=== PATIENT | female | born 1945 | race Caucasian/White ===

== ENCOUNTER 2017-02-22 20:08 | Inpatient (IN) | payer MEDICARE ==
[2017-02-22] MEDS ORDERED: NS 0.9% 1000 ML* 2,000 ML IV ONE (20:34)
[2017-02-22] MEDS ORDERED: Cefepime(*) 2 GM in NS 0.9% 50 ML* 50 ML IVPB ONE (20:38)
[2017-02-22 20:53] LABS: Hematocrit 40 % (35-47); Hemoglobin 13.4 g/dl (12.0-16.0); Mean Corpuscular HGB Conc 34 g/dl (31-36); Mean Corpuscular Hemoglobin 35 pg (27-31); Mean Corpuscular Volume 103 fL (80-97); Mean Platelet Volume 8 um3 (7.4-10.4); Red Cell Distribution Width 16 % (10.5-15)
[2017-02-22] MEDS ORDERED: NS 0.9% 50 ML* 50 ML ONE (21:01)
[2017-02-22 21:09] LABS: ALT 15 U/L (7-52); AST 17 U/L (13-39); Albumin 3.3 g/dL (3.2-5.2); Alkaline Phosphatase 59 U/L (34-104); Anion Gap 3 mmol/L (2-11); BUN/Creatinine Ratio 9.4 (8-20); Blood Urea Nitrogen 10 mg/dL (6-24); C Reactive Protein 4.08 mg/L (< 5.00); CO2 Carbon Dioxide 28 mmol/L (22-32); Calcium 8.3 mg/dL (8.6-10.3); Chloride 106 mmol/L (101-111); Creatine Kinase 98 U/L (10-223); EGFR African American 65.4 (>60); EGFR Non-African American 50.8 (>60); Globulin 2.6 g/dL (2-4); Glucose 97 mg/dL (70-100); Lipase < 10 U/L (11.0-82.0); Magnesium 1.8 mg/dL (1.9-2.7); Sodium 137 mmol/L (133-145); Total Protein 5.9 g/dL (6.4-8.9)
[2017-02-22 21:10] LABS: Troponin I 0.01 ng/mL (<0.04)
[2017-02-22 21:42] LABS: Urine Bilirubin Negative (Negative); Urine Glucose Negative (Negative); Urine Nitrite Negative (Negative)
--- NOTE | 2017-02-22 21:48 | RAD ---
Indication: Shortness of breath. Single frontal view of the chest performed at 2043 hours was reviewed. No prior study is available for comparison. No mediastinal shift is noted. Heart is of normal size and configuration. Early infiltrate in the right base is not excluded. Central line is in place. IMPRESSION: THERE MAY BE EARLY INFILTRATE IN THE RIGHT BASE..
[2017-02-22] MEDS ORDERED: Ondansetron INJ* 2 MG/ML VIAL IV PRN (22:02)
[2017-02-22] MEDS ORDERED: Albuterol 2.5 MG/3 ML NEB.SOL* (0.083%) INH PRN (22:02)
[2017-02-22] MEDS ORDERED: Magnesium Sulfate 2 GM IV* 2 GM/50 ML BAG IVPB ONE (22:05)
[2017-02-22] MEDS ORDERED: Albuterol/Ipratropium NEB.SOL* Albuterol 2.5 MG/Ipratropium 0.5 MG 3 ML INH SCH (23:00)
[2017-02-23] MEDS: Nicotine PATCH 21 MG/24 HR* PATCH TRANSDERM SCH ×2 (00:17→08:50)
[2017-02-23] MEDS: predniSONE TAB* 20 MG PO SCH ×2 (00:18→08:49)
[2017-02-23] MEDS: Oseltamivir CAP* 30 MG CAP PO SCH ×3 (00:19→20:59)
[2017-02-23] MEDS: cefTRIAXone VIAL(*) 1,000 MG in NS 0.9% 50 ML* 50 ML IVPB SCH (01:24)
[2017-02-23] MEDS: Azithromycin IV(*) 500 MG in NS 0.9% 250 ML* 250 ML IVPB SCH (02:05)
--- NOTE | 2017-02-23 02:13 | HP ---
CC: Dr. Dickinson, [facility] * HISTORY AND PHYSICAL: DATE OF ADMISSION: 02/22/17 PRIMARY CARE PROVIDER: Dr. Dickinson, [facility]. ATTENDING PHYSICIAN WHILE IN THE HOSPITAL: Dr. Jessica Arrington * (report dictated by Cuate Handy NP). CHIEF COMPLAINT: 1. Cough. 2. URI symptoms. 3. Fevers. HISTORY OF PRESENTING ILLNESS: Mrs. Carlson is a 71-year-old female patient who does not get any of her care here, but she recently relocated from [place], [place] to [facility]. She comes into the ER today, says over the last 5 days, she has had progressive worsening shortness of breath. Prior to this, she had episodes of runny nose, sore throat, cough, feeling congested. She has been aching all over and having fevers and just not feeling well. She has had decreased appetite and just more fatigued and more shortness of breath. She came in today because she was having some chest discomfort which was much worse when she was taking a deep breath and coughing. She described it as a pressure and heaviness and because of this, she told her who felt that she should come into the ER and be evaluated. She was evaluated here in ED. It was noted that she appeared to be hypoxic. She appeared to be short of breath. Ultimately, it was found that she had the flu and we were asked to evaluate. She also admitted having some diarrhea and recently was on a Z-Carlos from her primary. PAST MEDICAL HISTORY: Significant for: 1. Breast cancer with recurrent metastatic disease to her lungs and liver, on active chemo. 2. COPD. PAST SURGICAL HISTORY: 1. She has had a left mastectomy. 2. . HOME MEDICATIONS: Include: 1. Albuterol 1 puff inhaled every 6 hours as needed. 2. Mobic 7.5 mg p.o. b.i.d. 3. Valium 5 mg p.o. t.i.d. as needed. 4. Tapazole 5 mg p.o. daily. 5. [place] 1 tablet p.o. every 6 hours as needed. 6. Celexa 40 mg daily. ALLERGIES TO MEDICATIONS: No known drug allergies. FAMILY HISTORY: Both her parents were alcoholic. They are . SOCIAL HISTORY: She is a pack a day smoker. She has been a smoker for about 50 years. She denies any alcohol use. Surrogate decision maker is her . REVIEW OF SYSTEMS: There is no documented fever. Denied having any significant weight change. There was no double vision. She denied having any ear discharge. There was rhinorrhea. There was sore throat. There was chest discomfort per my HPI. There is dyspnea particularly on exertion. There is no orthopnea. No nocturnal dyspnea. No abdominal pain. There was some episodes of vomiting and diarrhea. No dysuria. No frequency. No seizure. No loss of consciousness. No pruritus and no skin ulcerations. Review of 14 systems completed, all others negative. PHYSICAL EXAMINATION GENERAL: At this time, Mrs. Carlson is a 71-year-old female patient. She appears to be well nourished, well developed. She is chronically ill- appearing. She is sitting in the ER stretcher. She does not appear to be in any acute distress. VITAL SIGNS: Blood pressure 112/47, pulse 81, respirations 22, O2 sat 99% on 4 L, and temperature 97.8. HEENT: Head: Atraumatic. Eyes: EOMs are intact. Sclerae anicteric and not pale. NECK: Supple. Throat: Oral mucosa appears to be dry. No oropharyngeal erythema. LUNGS: She did have wheezing noted throughout. She had equal diaphragmatic expansion. HEART: Sounds S1, S2. Regular rate and rhythm. No murmurs, rubs, or gallops. ABDOMEN: Soft. It was flat, nontender. Bowel sounds present. EXTREMITIES: Pulses 2+ throughout. She is able to move all 4 extremities with 5/5 strength. NEUROLOGIC: The patient is awake, alert, oriented x3. Tongue midline. Retail Brand Ambassador are equal. No gross focal deficits. SKIN: Grossly intact. LABORATORY DATA: WBC of 8.0, RBC of 3.90, hemoglobin of 13.4, hematocrit of 40 , platelet count of 253. The INR was 0.93, PTT of 29.4. Sodium 137, potassium of 4, chloride of 106, bicarb 28, BUN was 10, creatinine of 1.06, glucose 97, lactic 1, calcium 8.3, mag 1.8. Total bilirubin 0.3. AST 17, ALT 15, alk phos 59. CK 98, CK-MB 2.9. Troponin 0.01. BNP of 128. Lipase negative. Albumin normal. Urine negative. Serology positive for flu. She had chest x-ray obtained today which revealed, impression: Early infiltrate in the right base. Old medical records were reviewed. She had an EKG as well, which showed a normal sinus rhythm rate of 70. No ST elevations or T-wave inversions. Old medical records were reviewed. ASSESSMENT AND PLAN: Mrs. Carlson is a 71-year-old female patient with multiple medical problems, coming into the ER today with complaints of cough, chills, URI symptoms. On evaluation, found to have pneumonia with early infiltrate. She will be admitted under inpatient status for: 1. Influenza. At this point, I did put her on Tamiflu. She does appear to have a chronic obstructive pulmonary disease exacerbation related to this. I will go ahead and put her on steroids and nebs. In addition to this, there is a question of early pneumonia is developing in the right base. She was significantly wheezing. She is immunocompromised, so I did think it is appropriate to put her on antibiotics despite the white count being elevated. She may not amount this. So, I am going to put her on Rocephin and azithromycin. She has been hydrated here in the ED. We will put her on nebs and steroids and Dulera. We will continue to follow closely. 2. Breast cancer with mets. She takes chemo every Wednesday. She will follow with her primary oncologist. 3. Chest discomfort. Probably secondary to the influenza and pneumonia. We will go ahead and cycle her troponins. 4. DVT prophylaxis. She will be placed on heparin subcu. 5. Code status. Full code. 6. Fluids, electrolytes, and nutrition. She can have a regular diet. 7. Diarrhea is probably secondary to the azithromycin, but I will check a C. diff. TIME SPENT: Time spent on the admission was 60 minutes, greater than half the time was spent [id number] with the patient obtaining my history and physical, other half of the time spent going over the plan of care with the patient and implementing plan of care. I did discuss the plan of care with my attending, Dr. Arrington, she is in agreement. CUATE HANDY, RIVAS [id number]/CPS #: [id number] MARIA ESTHER
[2017-02-23] MEDS: Albuterol/Ipratropium NEB.SOL* Albuterol 2.5 MG/Ipratropium 0.5 MG 3 ML INH SCH ×6 (03:46→23:52)
--- NOTE | 2017-02-23 05:59 | ED ---
Juliet Gamino Nilda, scribed for Bran Sharif MD on 02/22/17 at 2032 . Shortness of Breath - HPI Summary HPI Summary: This patient is a 71 year old F BIBA presenting to [facility] accompanied by family member with a chief complaint of constant exacerbated SOB since 5 days ago. The patient rates the pain 0/10 in severity. Symptoms alleviated by neb treatment. Patient reports CP, cough, joint pain (hip, ankle, knee; present 1 week), diaphoresis, nausea (resolved), weakness, and fever. Patient denies abd pain. She has had a cold for a week. PMHx includes COPD, emphysema, and cancer ( currently on chemo). Patient has a port and uses 2 L Nasal Cannula at home. 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 NKDA. - History of Current Complaint Chief Complaint: EDShortnessOfBreath Time Seen by Provider: 02/22/17 20:22 Hx Obtained From: Patient Onset/Duration: Sudden Onset, Lasting Days - 5 days, Still Present Current Severity: Moderate Dyspnea At: Rest Aggrevating Factors: Other - COPD PMHx; recent cold Alleviating Factors: Other - Nebulizer Associated Signs & Symptoms: Cough (Productive), Chest Pain w/Cough, Fever, Diaphoresis - Allergy/Home Medications Allergies/Adverse Reactions: Allergies Allergy/AdvReac Type Severity Reaction Status Date / Time No Known Allergies Allergy Verified 02/22/17 21:00 Home Medications: Home Medications Albuterol HFA INHALER* [Ventolin HFA Inhaler*] 1 puff INH Q6H PRN 02/22/17 [ History Confirmed 02/22/17] Citalopram TAB* [CeleXA TAB*] 40 mg PO DAILY 02/22/17 [History Confirmed ] Diazepam TAB(*) [Valium TAB(*)] 5 mg PO TID PRN 02/22/17 [History Confirmed ] HYDROcodone/ACETAMIN 5-325 MG* [[place] 5-325 TAB*] 1 tab PO Q6H PRN 02/22/17 [ History Confirmed 02/22/17] Meloxicam(NF) [Mobic(NF)] 7.5 mg PO BID 02/22/17 [History Confirmed 02/22/17] Methimazole TAB* [Tapazole TAB*] 5 mg PO DAILY 02/22/17 [History Confirmed 02/22] PMH/Surg Hx/FS Hx/Imm Hx Respiratory History: Reports: Hx Chronic Obstructive Pulmonary Disease (COPD), Other Respiratory Problems/Disorders - Emphysema Sensory History: Denies: Hx Legally Blind - Cancer History Cancer Type, Location and Year: Patient currently on chemo but patient and family member did not provide information for which cancer she has. Infectious Disease History: No Infectious Disease History: Denies: Traveled Outside the [place] in Last 30 Days - Family History Known Family History: Positive: Hypertension Negative: Diabetes Review of Systems Positive: Fever, Skin Diaphoresis Positive: Other - Has had a cold for the past week Positive: Chest Pain Positive: Shortness Of Breath, Cough Positive: Nausea. Negative: Abdominal Pain Positive: Other - joint pain (hip, ankle, knee). Negative: Edema Positive: Weakness All Other Systems Reviewed And Are Negative: Yes Physical Exam Triage Information Reviewed: Yes Vital Signs On Initial Exam: Initial Vitals Temp Pulse Resp BP Pulse Ox 97.8 F 81 22 112/47 99 02/22/17 20:13 02/22/17 20:13 02/22/17 20:13 02/22/17 20:13 02/22/17 20:13 Vital Signs Reviewed: Yes Appearance: Positive: Well-Appearing, No Pain Distress Skin: Positive: Warm, Skin Color Reflects Adequate Perfusion, Dry Head/Face: Positive: Normal Head/Face Inspection Eyes: Positive: EOMI, VERNON ENT: Positive: Normal ENT inspection Neck: Positive: Supple, Nontender Respiratory/Lung Sounds: Positive: Other - Wheezes and Crackles bilaterally; mild respiratory distress, O2 Sat in upper 80s on NC Cardiovascular: Positive: RRR. Negative: Leg Edema Left, Leg Edema Right Abdomen Description: Positive: Nontender, Soft Bowel Sounds: Positive: Present Musculoskeletal: Positive: Normal, Strength/ROM Intact. Negative: Edema Left, Edema Right Neurological: Positive: Normal, Sensory/Motor Intact, Alert, Oriented to Person Place, Time Psychiatric: Positive: Affect/Mood Appropriate Diagnostics - Vital Signs Vital Signs Temp Pulse Resp BP Pulse Ox 02/22/17 20:13 97.8 F 81 22 112/47 99 - Laboratory Lab Results: Lab Results 02/22/17 02/22/17 02/22/17 Range/Units 20:30 20:30 20:30 WBC (3.5-10.8) 10^3/ul RBC (4.0-5.4) 10^6/ul Hgb (12.0-16.0) g/dl Hct (35-47) % MCV (80-97) fL MCH (27-31) pg MCHC (31-36) g/dl RDW (10.5-15) % Plt Count (150-450) 10^3/ul MPV (7.4-10.4) um3 Neut % (Auto) (38-83) % Lymph % (Auto) (25-47) % [place] % (Auto) (1-9) % Eos % (Auto) (0-6) % Baso % (Auto) (0-2) % Absolute Neuts (auto) (1.5-7.7) 10^3/ul Absolute Lymphs (auto) (1.0-4.8) 10^3/ul Absolute Monos (auto) (0-0.8) 10^3/ul Absolute Eos (auto) (0-0.6) 10^3/ul Absolute Basos (auto) (0-0.2) 10^3/ul Absolute Nucleated RBC 10^3/ul Nucleated RBC % INR (Anticoag Therapy) 0.93 (0.89-1.11) APTT 29.4 (26.0-36.3) seconds Sodium 137 (133-145) mmol/L Potassium 4.0 (3.5-5.0) mmol/L Chloride 106 (101-111) mmol/L Carbon Dioxide 28 (22-32) mmol/L Anion Gap 3 (2-11) mmol/L BUN 10 (6-24) mg/dL Creatinine 1.06 H (0.51-0.95) mg/dL Est GFR ( Amer) 65.4 (>60) Est GFR (Non-Af Amer) 50.8 (>60) BUN/Creatinine Ratio 9.4 (8-20) Glucose 97 (70-100) mg/dL Lactic Acid (0.5-2.0) mmol/L Calcium 8.3 L (8.6-10.3) mg/dL Magnesium 1.8 L (1.9-2.7) mg/dL Total Bilirubin 0.30 (0.2-1.0) mg/dL AST 17 (13-39) U/L ALT 15 (7-52) U/L Alkaline Phosphatase 59 (34-104) U/L Total Creatine Kinase 98 (10-223) U/L CK-MB (CK-2) 2.9 (0.6-6.3) ng/mL Troponin I 0.01 (<0.04) ng/mL C-Reactive Protein 4.08 (< 5.00) mg/L B-Natriuretic Peptide 128 H ( - 100) pg/mL Total Protein 5.9 L (6.4-8.9) g/dL Albumin 3.3 (3.2-5.2) g/dL Globulin 2.6 (2-4) g/dL Albumin/Globulin Ratio 1.3 (1-3) Lipase < 10 L (11.0-82.0) U/L Urine Color Urine Appearance Urine pH (5-9) Ur Specific Young (1.010-1.030) Urine Protein (Negative) Urine Ketones (Negative) Urine Blood (Negative) Urine Nitrate (Negative) Urine Bilirubin (Negative) Urine Urobilinogen (Negative) Ur Leukocyte Esterase (Negative) Urine Glucose (Negative) Influenza A (Rapid) (Negative) Influenza B (Rapid) (Negative) 02/22/17 02/22/17 02/22/17 Range/Units 20:30 20:30 21:16 WBC 8.0 (3.5-10.8) 10^3/ul RBC 3.90 L (4.0-5.4) 10^6/ul Hgb 13.4 (12.0-16.0) g/dl Hct 40 (35-47) % MCV 103 H (80-97) fL MCH 35 H (27-31) pg MCHC 34 (31-36) g/dl RDW 16 H (10.5-15) % Plt Count 253 (150-450) 10^3/ul MPV 8 (7.4-10.4) um3 Neut % (Auto) 54.3 (38-83) % Lymph % (Auto) 36.7 (25-47) % [place] % (Auto) 8.0 (1-9) % Eos % (Auto) 0.6 (0-6) % Baso % (Auto) 0.4 (0-2) % Absolute Neuts (auto) 4.4 (1.5-7.7) 10^3/ul Absolute Lymphs (auto) 2.9 (1.0-4.8) 10^3/ul Absolute Monos (auto) 0.6 (0-0.8) 10^3/ul Absolute Eos (auto) 0 (0-0.6) 10^3/ul Absolute Basos (auto) 0 (0-0.2) 10^3/ul Absolute Nucleated RBC 0.01 10^3/ul Nucleated RBC % 0.1 INR (Anticoag Therapy) (0.89-1.11) APTT (26.0-36.3) seconds Sodium (133-145) mmol/L Potassium (3.5-5.0) mmol/L Chloride (101-111) mmol/L Carbon Dioxide (22-32) mmol/L Anion Gap (2-11) mmol/L BUN (6-24) mg/dL Creatinine (0.51-0.95) mg/dL Est GFR ( Amer) (>60) Est GFR (Non-Af Amer) (>60) BUN/Creatinine Ratio (8-20) Glucose (70-100) mg/dL Lactic Acid 1.0 (0.5-2.0) mmol/L Calcium (8.6-10.3) mg/dL Magnesium (1.9-2.7) mg/dL Total Bilirubin (0.2-1.0) mg/dL AST (13-39) U/L ALT (7-52) U/L Alkaline Phosphatase (34-104) U/L Total Creatine Kinase (10-223) U/L CK-MB (CK-2) (0.6-6.3) ng/mL Troponin I (<0.04) ng/mL C-Reactive Protein (< 5.00) mg/L B-Natriuretic Peptide ( - 100) pg/mL Total Protein (6.4-8.9) g/dL Albumin (3.2-5.2) g/dL Globulin (2-4) g/dL Albumin/Globulin Ratio (1-3) Lipase (11.0-82.0) U/L Urine Color Urine Appearance Urine pH (5-9) Ur Specific Young (1.010-1.030) Urine Protein (Negative) Urine Ketones (Negative) Urine Blood (Negative) Urine Nitrate (Negative) Urine Bilirubin (Negative) Urine Urobilinogen (Negative) Ur Leukocyte Esterase (Negative) Urine Glucose (Negative) Influenza A (Rapid) Negative (Negative) Influenza B (Rapid) Positive H (Negative) 02/22/17 Range/Units 21:30 WBC (3.5-10.8) 10^3/ul RBC (4.0-5.4) 10^6/ul Hgb (12.0-16.0) g/dl Hct (35-47) % MCV (80-97) fL MCH (27-31) pg MCHC (31-36) g/dl RDW (10.5-15) % Plt Count (150-450) 10^3/ul MPV (7.4-10.4) um3 Neut % (Auto) (38-83) % Lymph % (Auto) (25-47) % [place] % (Auto) (1-9) % Eos % (Auto) (0-6) % Baso % (Auto) (0-2) % Absolute Neuts (auto) (1.5-7.7) 10^3/ul Absolute Lymphs (auto) (1.0-4.8) 10^3/ul Absolute Monos (auto) (0-0.8) 10^3/ul Absolute Eos (auto) (0-0.6) 10^3/ul Absolute Basos (auto) (0-0.2) 10^3/ul Absolute Nucleated RBC 10^3/ul Nucleated RBC % INR (Anticoag Therapy) (0.89-1.11) APTT (26.0-36.3) seconds Sodium (133-145) mmol/L Potassium (3.5-5.0) mmol/L Chloride (101-111) mmol/L Carbon Dioxide (22-32) mmol/L Anion Gap (2-11) mmol/L BUN (6-24) mg/dL Creatinine (0.51-0.95) mg/dL Est GFR ( Amer) (>60) Est GFR (Non-Af Amer) (>60) BUN/Creatinine Ratio (8-20) Glucose (70-100) mg/dL Lactic Acid (0.5-2.0) mmol/L Calcium (8.6-10.3) mg/dL Magnesium (1.9-2.7) mg/dL Total Bilirubin (0.2-1.0) mg/dL AST (13-39) U/L ALT (7-52) U/L Alkaline Phosphatase (34-104) U/L Total Creatine Kinase (10-223) U/L CK-MB (CK-2) (0.6-6.3) ng/mL Troponin I (<0.04) ng/mL C-Reactive Protein (< 5.00) mg/L B-Natriuretic Peptide ( - 100) pg/mL Total Protein (6.4-8.9) g/dL Albumin (3.2-5.2) g/dL Globulin (2-4) g/dL Albumin/Globulin Ratio (1-3) Lipase (11.0-82.0) U/L Urine Color Yellow Urine Appearance Clear Urine pH 5.0 (5-9) Ur Specific [place] 1.012 (1.010-1.030) Urine Protein Negative (Negative) Urine Ketones Negative (Negative) Urine Blood Negative (Negative) Urine Nitrate Negative (Negative) Urine Bilirubin Negative (Negative) Urine Urobilinogen Negative (Negative) Ur Leukocyte Esterase Negative (Negative) Urine Glucose Negative (Negative) Influenza A (Rapid) (Negative) Influenza B (Rapid) (Negative) Result Diagrams: 02/22/17 20:30 02/22/17 20:30 Lab Statement: Any lab studies that have been ordered have been reviewed, and results considered in the medical decision making process. - Radiology CXR Radiology Interpretation Completed By: Radiologist - There may be lower infiltrate in the right base. ED Physician has reviewed this report and agrees. - EKG 2052 Cardiac Rate: NL - 70 bpm EKG Rhythm: Sinus Rhythm ST Segment: Normal Ectopy: None Course/Dx - Course Course Of Treatment: Allergies reviewed. Medications reviewed. ADMIT HOSPITALIST. CRITICAL CARE TIME LESS THAN 30 MINUTES. - Diagnoses Provider Diagnoses: SOB (shortness of breath), Hypoxia, Influenza - Physician Notifications Discussed Care of Patient With: Jessica Arrington - Hospitalist Time Discussed With Above Provider: 22:00 Instructed by Provider To: Admit As Inpatient Discharge - Discharge Plan Condition: Stable Disposition: ADMITTED TO [facility] documentation as recorded by the Juliet joe Nilda accurately reflects the service I personally performed and the decisions made by me, Bran Sharif MD.
[2017-02-23 06:04] LABS: Hematocrit 38 % (35-47); Hemoglobin 12.3 g/dl (12.0-16.0); Mean Corpuscular HGB Conc 33 g/dl (31-36); Mean Corpuscular Hemoglobin 34 pg (27-31); Mean Corpuscular Volume 104 fL (80-97); Mean Platelet Volume 8 um3 (7.4-10.4); Red Blood Count 3.62 10^6/ul (4.0-5.4); Red Cell Distribution Width 16 % (10.5-15); White Blood Count 5.2 10^3/ul (3.5-10.8)
[2017-02-23 06:20] LABS: BUN/Creatinine Ratio 11.2 (8-20); Calcium 7.4 mg/dL (8.6-10.3); EGFR African American 71.5 (>60); EGFR Non-African American 55.6 (>60); Potassium 4.6 mmol/L (3.5-5.0)
[2017-02-23] MEDS: Heparin VIAL(*) 5000 UNITS/ML VIAL (FIVE THOUSAND) SUBCUT SCH ×3 (06:50→21:01)
[2017-02-23] MEDS: Mometasone/Formoter 200/5 MDI INH SCH ×2 (08:20→21:03)
[2017-02-23] MEDS: Diazepam TAB(*) 5 MG PO PRN ×3 (08:48→20:59)
[2017-02-23] MEDS: Citalopram TAB* 40 MG PO SCH (08:48)
[2017-02-23] MEDS: Methimazole TAB* 5 MG PO SCH (08:49)
--- NOTE | 2017-02-23 19:01 | PN ---
Subjective Date of Service: 02/23/17 Interval History: Patient states she feels much better compared to yesterday and with 4L O2. Patient has home O2 PRN. Patient denies significant increases in SOB, CP, N/V, F /C. Patient states abdominal pain and muscle aches are much improved. Patient concerned about missing chemotherapy in [place] today. Spoke with Oncologist and reassured that she would not get chemo anyway due to flu. Doing well and can afford to miss a week. Patient reassured but still anxious to be D/ C'd. Family History: Unchanged from Admission Social History: Unchanged from Admission Past Medical History: Unchanged from Admission Objective Active Medications: Hydrocodone Bitart/Acetaminophen ([place] 5-325 Tab*) 1 tab PO Q6H PRN PRN Reason: PAIN Albuterol (Ventolin 2.5 Mg/3 Ml Neb.Renee*) 2.5 mg INH Q2H PRN PRN Reason: SOB/WHEEZING Albuterol/Ipratropium (Duoneb (Albuterol 2.5 Mg/Ipratropium 0.5 Mg)) 1 neb INH [id number] AWAKE [facility] Last Admin: 02/23/17 16:46 Dose: 1 neb Citalopram Hydrobromide (Celexa Tab*) 40 mg PO DAILY [facility] Last Admin: 02/23/17 08:48 Dose: 40 mg Diazepam (Valium Tab(*)) 5 mg PO TID PRN PRN Reason: ANXIETY Last Admin: 02/23/17 13:52 Dose: 5 mg Heparin Sodium (Porcine) (Heparin Vial(*)) 5,000 units SUBCUT Q8HR [facility] Last Admin: 02/23/17 13:51 Dose: 5,000 units Ceftriaxone Sodium 1,000 mg/ (Sodium Chloride) 50 mls @ 200 mls/hr IVPB Q24H [facility] Last Admin: 02/23/17 01:24 Dose: 200 mls/hr Azithromycin 500 mg/ Sodium (Chloride) 250 mls @ 250 mls/hr IVPB Q24H [facility] Last Admin: 02/23/17 02:05 Dose: 250 mls/hr Methimazole (Tapazole Tab*) 5 mg PO DAILY [facility] Last Admin: 02/23/17 08:49 Dose: 5 mg Mometasone Furoate/Formoterol Fumar (Dulera 200/5 Mdi*) 2 puff INH BID [facility] Last Admin: 02/23/17 08:20 Dose: 2 puff Nicotine (Nicotine Patch 21 Mg/24 Hr*) 1 patch TRANSDERM DAILY [facility] Last Admin: 02/23/17 08:50 Dose: 1 patch Ondansetron HCl (Zofran Inj*) 4 mg IV Q6H PRN PRN Reason: NAUSEA Oseltamivir Phosphate (Tamiflu Cap*) 30 mg PO BID [facility] Stop: 02/27/17 09:01 Last Admin: 02/23/17 08:49 Dose: 30 mg Pharmacy Profile Note (Nicotine Patch Removal Note*) 1 note FOLLOW UP 2100 [facility] Prednisone (Deltasone Tab*) 60 mg PO DAILY [facility] Last Admin: 02/23/17 08:49 Dose: 60 mg Vital Signs 02/22/17 02/22/17 02/22/17 22:22 22:30 23:00 Temperature Pulse Rate 72 84 Respiratory 22 21 25 Rate Blood Pressure 114/50 122/52 (mmHg) O2 Sat by Pulse 100 100 Oximetry 02/22/17 02/23/17 02/23/17 23:31 00:00 04:37 Temperature 98.4 F 97.7 F Pulse Rate 88 65 Respiratory 22 18 Rate Blood Pressure 104/58 98/45 (mmHg) O2 Sat by Pulse 100 94 99 Oximetry 02/23/17 02/23/17 02/23/17 07:39 08:00 08:22 Temperature 98.5 F Pulse Rate 78 77 Respiratory 20 24 14 Rate Blood Pressure 116/68 (mmHg) O2 Sat by Pulse 94 98 Oximetry 02/23/17 02/23/17 02/23/17 08:48 10:48 11:32 Temperature 98.7 F Pulse Rate 84 Respiratory 32 30 20 Rate Blood Pressure 129/53 (mmHg) O2 Sat by Pulse 96 Oximetry 02/23/17 02/23/17 02/23/17 12:22 13:52 15:57 Temperature 98.7 F Pulse Rate 83 90 Respiratory 20 28 16 Rate Blood Pressure 121/51 (mmHg) O2 Sat by Pulse 91 95 Oximetry 02/23/17 16:47 Temperature Pulse Rate 85 Respiratory 20 Rate Blood Pressure (mmHg) O2 Sat by Pulse 93 Oximetry Oxygen Devices in Use Now: Nasal Cannula - 4L Appearance: Patient is a 71yo female who appears older than stated age and is sitting in the bed in NAD. Eyes: No Scleral Icterus, PERRLA Ears/Nose/Mouth/Throat: Clear Oropharnyx, Mucous Membranes Moist, - - Edentulous Neck: NL Appearance and Movements; NL JVP, Trachea Midline Respiratory: Symmetrical Chest Expansion and Respiratory Effort, - - Rhonchi present in B/L middle and lower lobes, no wheezes. Decreased Breath Sounds. Cardiovascular: NL Sounds; No Murmurs; No JVD, RRR, No Edema Abdominal: NL Sounds; No Tenderness; No Distention, No Hepatosplenomegaly Lymphatic: No Cervical Adenopathy Extremities: No Edema, No Clubbing, Cyanosis Skin: No Rash or Ulcers Neurological: Alert and Oriented x 3, NL Muscle Strength and Tone Result Diagrams: 02/23/17 05:10 02/23/17 05:10 Additional Lab and Data: Lab Results 02/22/17 02/22/17 02/22/17 Range/Units 20:30 20:30 20:30 WBC (3.5-10.8) 10^3/ul RBC (4.0-5.4) 10^6/ul Hgb (12.0-16.0) g/dl Hct (35-47) % MCV (80-97) fL MCH (27-31) pg MCHC (31-36) g/dl RDW (10.5-15) % Plt Count (150-450) 10^3/ul MPV (7.4-10.4) um3 Neut % (Auto) (38-83) % Lymph % (Auto) (25-47) % [place] % (Auto) (1-9) % Eos % (Auto) (0-6) % Baso % (Auto) (0-2) % Absolute Neuts (auto) (1.5-7.7) 10^3/ul Absolute Lymphs (auto) (1.0-4.8) 10^3/ul Absolute Monos (auto) (0-0.8) 10^3/ul Absolute Eos (auto) (0-0.6) 10^3/ul Absolute Basos (auto) (0-0.2) 10^3/ul Absolute Nucleated RBC 10^3/ul Nucleated RBC % INR (Anticoag Therapy) 0.93 (0.89-1.11) APTT 29.4 (26.0-36.3) seconds Sodium 137 (133-145) mmol/L Potassium 4.0 (3.5-5.0) mmol/L Chloride 106 (101-111) mmol/L Carbon Dioxide 28 (22-32) mmol/L Anion Gap 3 (2-11) mmol/L BUN 10 (6-24) mg/dL Creatinine 1.06 H (0.51-0.95) mg/dL Est GFR ( Amer) 65.4 (>60) Est GFR (Non-Af Amer) 50.8 (>60) BUN/Creatinine Ratio 9.4 (8-20) Glucose 97 (70-100) mg/dL Lactic Acid (0.5-2.0) mmol/L Calcium 8.3 L (8.6-10.3) mg/dL Magnesium 1.8 L (1.9-2.7) mg/dL Total Bilirubin 0.30 (0.2-1.0) mg/dL AST 17 (13-39) U/L ALT 15 (7-52) U/L Alkaline Phosphatase 59 (34-104) U/L Total Creatine Kinase 98 (10-223) U/L CK-MB (CK-2) 2.9 (0.6-6.3) ng/mL Troponin I 0.01 (<0.04) ng/mL C-Reactive Protein 4.08 (< 5.00) mg/L B-Natriuretic Peptide 128 H ( - 100) pg/mL Total Protein 5.9 L (6.4-8.9) g/dL Albumin 3.3 (3.2-5.2) g/dL Globulin 2.6 (2-4) g/dL Albumin/Globulin Ratio 1.3 (1-3) Lipase < 10 L (11.0-82.0) U/L Urine Color Urine Appearance Urine pH (5-9) Ur Specific [place] (1.010-1.030) Urine Protein (Negative) Urine Ketones (Negative) Urine Blood (Negative) Urine Nitrate (Negative) Urine Bilirubin (Negative) Urine Urobilinogen (Negative) Ur Leukocyte Esterase (Negative) Urine Glucose (Negative) Influenza A (Rapid) (Negative) Influenza B (Rapid) (Negative) 10/16/17 10/16/17 10/16/17 Range/Units 20:30 20:30 21:16 WBC 8.0 (3.5-10.8) 10^3/ul RBC 3.90 L (4.0-5.4) 10^6/ul Hgb 13.4 (12.0-16.0) g/dl Hct 40 (35-47) % MCV 103 H (80-97) fL MCH 35 H (27-31) pg MCHC 34 (31-36) g/dl RDW 16 H (10.5-15) % Plt Count 253 (150-450) 10^3/ul MPV 8 (7.4-10.4) um3 Neut % (Auto) 54.3 (38-83) % Lymph % (Auto) 36.7 (25-47) % [place] % (Auto) 8.0 (1-9) % Eos % (Auto) 0.6 (0-6) % Baso % (Auto) 0.4 (0-2) % Absolute Neuts (auto) 4.4 (1.5-7.7) 10^3/ul Absolute Lymphs (auto) 2.9 (1.0-4.8) 10^3/ul Absolute Monos (auto) 0.6 (0-0.8) 10^3/ul Absolute Eos (auto) 0 (0-0.6) 10^3/ul Absolute Basos (auto) 0 (0-0.2) 10^3/ul Absolute Nucleated RBC 0.01 10^3/ul Nucleated RBC % 0.1 INR (Anticoag Therapy) (0.89-1.11) APTT (26.0-36.3) seconds Sodium (133-145) mmol/L Potassium (3.5-5.0) mmol/L Chloride (101-111) mmol/L Carbon Dioxide (22-32) mmol/L Anion Gap (2-11) mmol/L BUN (6-24) mg/dL Creatinine (0.51-0.95) mg/dL Est GFR ( Amer) (>60) Est GFR (Non-Af Amer) (>60) BUN/Creatinine Ratio (8-20) Glucose (70-100) mg/dL Lactic Acid 1.0 (0.5-2.0) mmol/L Calcium (8.6-10.3) mg/dL Magnesium (1.9-2.7) mg/dL Total Bilirubin (0.2-1.0) mg/dL AST (13-39) U/L ALT (7-52) U/L Alkaline Phosphatase (34-104) U/L Total Creatine Kinase (10-223) U/L CK-MB (CK-2) (0.6-6.3) ng/mL Troponin I (<0.04) ng/mL C-Reactive Protein (< 5.00) mg/L B-Natriuretic Peptide ( - 100) pg/mL Total Protein (6.4-8.9) g/dL Albumin (3.2-5.2) g/dL Globulin (2-4) g/dL Albumin/Globulin Ratio (1-3) Lipase (11.0-82.0) U/L Urine Color Urine Appearance Urine pH (5-9) Ur Specific [place] (1.010-1.030) Urine Protein (Negative) Urine Ketones (Negative) Urine Blood (Negative) Urine Nitrate (Negative) Urine Bilirubin (Negative) Urine Urobilinogen (Negative) Ur Leukocyte Esterase (Negative) Urine Glucose (Negative) Influenza A (Rapid) Negative (Negative) Influenza B (Rapid) Positive H (Negative) 02/22/17 Range/Units 21:30 WBC (3.5-10.8) 10^3/ul RBC (4.0-5.4) 10^6/ul Hgb (12.0-16.0) g/dl Hct (35-47) % MCV (80-97) fL MCH (27-31) pg MCHC (31-36) g/dl RDW (10.5-15) % Plt Count (150-450) 10^3/ul MPV (7.4-10.4) um3 Neut % (Auto) (38-83) % Lymph % (Auto) (25-47) % [place] % (Auto) (1-9) % Eos % (Auto) (0-6) % Baso % (Auto) (0-2) % Absolute Neuts (auto) (1.5-7.7) 10^3/ul Absolute Lymphs (auto) (1.0-4.8) 10^3/ul Absolute Monos (auto) (0-0.8) 10^3/ul Absolute Eos (auto) (0-0.6) 10^3/ul Absolute Basos (auto) (0-0.2) 10^3/ul Absolute Nucleated RBC 10^3/ul Nucleated RBC % INR (Anticoag Therapy) (0.89-1.11) APTT (26.0-36.3) seconds Sodium (133-145) mmol/L Potassium (3.5-5.0) mmol/L Chloride (101-111) mmol/L Carbon Dioxide (22-32) mmol/L Anion Gap (2-11) mmol/L BUN (6-24) mg/dL Creatinine (0.51-0.95) mg/dL Est GFR ( Amer) (>60) Est GFR (Non-Af Amer) (>60) BUN/Creatinine Ratio (8-20) Glucose (70-100) mg/dL Lactic Acid (0.5-2.0) mmol/L Calcium (8.6-10.3) mg/dL Magnesium (1.9-2.7) mg/dL Total Bilirubin (0.2-1.0) mg/dL AST (13-39) U/L ALT (7-52) U/L Alkaline Phosphatase (34-104) U/L Total Creatine Kinase (10-223) U/L CK-MB (CK-2) (0.6-6.3) ng/mL Troponin I (<0.04) ng/mL C-Reactive Protein (< 5.00) mg/L B-Natriuretic Peptide ( - 100) pg/mL Total Protein (6.4-8.9) g/dL Albumin (3.2-5.2) g/dL Globulin (2-4) g/dL Albumin/Globulin Ratio (1-3) Lipase (11.0-82.0) U/L Urine Color Yellow Urine Appearance Clear Urine pH 5.0 (5-9) Ur Specific [place] 1.012 (1.010-1.030) Urine Protein Negative (Negative) Urine Ketones Negative (Negative) Urine Blood Negative (Negative) Urine Nitrate Negative (Negative) Urine Bilirubin Negative (Negative) Urine Urobilinogen Negative (Negative) Ur Leukocyte Esterase Negative (Negative) Urine Glucose Negative (Negative) Influenza A (Rapid) (Negative) Influenza B (Rapid) (Negative) Microbiology and Other Data: Microbiology 10/17/17 10:00 Gram Stain - Final Sputum Expectorated Assess/Plan/Problems-Billing Assessment: Patient is a 71yo female with a PMH sigificant for COPD and breast cancer with Mets to lung and liver who presents with URI symptoms and tested positive for the flu, has possible lung consolidation on U/S representing Pneumonia, and possibly has a COPD exacerbation. Patient is feeling better with treatment but is unable to wean O2. - Patient Problems (1) Influenza B Current Visit: Yes Status: Acute Code(s): J10.1 - FLU DUE TO OTH IDENT INFLUENZA VIRUS W OTH RESP MANIFEST SNOMED Code(s): 15778693 Comment: Tested positive for Influenza B. Treated with Tamiflu. Improving. (2) Pneumonia Current Visit: Yes Status: Acute Code(s): J18.9 - PNEUMONIA, UNSPECIFIED ORGANISM SNOMED Code(s): 266602344 Comment: Consolidation on lungs consistent with possible PNA. Patient has known pulmonary nodules without study for correlation. Will treat empirically for pneumonia due to immunocompromised state and concurrent COPD exacerbation. Sputum and blood culture pending. (3) COPD (chronic obstructive pulmonary disease) Current Visit: Yes Status: Acute Code(s): J44.9 - CHRONIC OBSTRUCTIVE PULMONARY DISEASE, UNSPECIFIED SNOMED Code(s): 89002101 Comment: Treated with Duoneb, Home inhalers, Oral prednisone and antibiotics. Improving, no whzzeing on exam. (4) Breast cancer Current Visit: Yes Status: Acute Code(s): C50.919 - MALIGNANT NEOPLASM OF [facility] SITE OF UNSPECIFIED FEMALE BREAST SNOMED Code(s): 143333473 Comment: Receives Chemo every Wednesday at 0800 in [place]. 02/24 dose ok to miss per oncologist. Patient will call when D/C'd (5) NSTEMI (non-ST elevated myocardial infarction) Current Visit: Yes Status: Acute Code(s): I21.4 - NON-ST ELEVATION (NSTEMI) MYOCARDIAL INFARCTION SNOMED Code(s): 367702756 Comment: Troponin elevated to .04. No chest pain or EKG changes. Likely represents demand ischemia. Consider outpatient stress test. (6) Full code status Current Visit: Yes Status: Acute Code(s): Z78.9 - OTHER SPECIFIED HEALTH STATUS SNOMED Code(s): 432172781 (7) DVT prophylaxis Current Visit: Yes Status: Acute Code(s): TKK5493 - SNOMED Code(s): 867943643 Comment: Heparin SubQ Status and Disposition: Patient is admitted inpatient. Will discharge when medically able. Estimate 1-2 days.
[2017-02-23] MEDS: Nicotine Patch Removal NOTE FOLLOW UP SCH (21:05)
[2017-02-23] MEDS ORDERED: Diazepam TAB(*) 2 MG PO ONE (23:44)
[2017-02-24] MEDS: cefTRIAXone VIAL(*) 1,000 MG in NS 0.9% 50 ML* 50 ML IVPB SCH (00:25)
[2017-02-24] MEDS: Azithromycin IV(*) 500 MG in NS 0.9% 250 ML* 250 ML IVPB SCH (01:12)
[2017-02-24] MEDS: Albuterol/Ipratropium NEB.SOL* Albuterol 2.5 MG/Ipratropium 0.5 MG 3 ML INH SCH ×4 (02:42→14:23)
[2017-02-24] MEDS: Heparin VIAL(*) 5000 UNITS/ML VIAL (FIVE THOUSAND) SUBCUT SCH ×3 (06:35→21:26)
[2017-02-24] MEDS: Mometasone/Formoter 200/5 MDI INH SCH ×2 (08:06→22:16)
[2017-02-24] MEDS: Citalopram TAB* 40 MG PO SCH (09:04)
[2017-02-24] MEDS: Diazepam TAB(*) 5 MG PO PRN ×2 (09:04→21:33)
[2017-02-24] MEDS: predniSONE TAB* 20 MG PO SCH (09:04)
[2017-02-24] MEDS: Nicotine PATCH 21 MG/24 HR* PATCH TRANSDERM SCH (09:04)
[2017-02-24] MEDS: Oseltamivir CAP* 30 MG CAP PO SCH ×2 (09:04→21:26)
[2017-02-24] MEDS: Methimazole TAB* 5 MG PO SCH (09:04)
[2017-02-24 09:43] LABS: Hematocrit 39 % (35-47); Hemoglobin 12.5 g/dl (12.0-16.0); Mean Corpuscular HGB Conc 32 g/dl (31-36); Mean Corpuscular Hemoglobin 34 pg (27-31); Mean Corpuscular Volume 104 fL (80-97); Mean Platelet Volume 8 um3 (7.4-10.4); Red Blood Count 3.72 10^6/ul (4.0-5.4); Red Cell Distribution Width 16 % (10.5-15); White Blood Count 13.6 10^3/ul (3.5-10.8)
[2017-02-24 10:05] LABS: BUN/Creatinine Ratio 14.4 (8-20); Calcium 7.9 mg/dL (8.6-10.3); EGFR African American 78.9 (>60); EGFR Non-African American 61.4 (>60); Potassium 4.2 mmol/L (3.5-5.0)
[2017-02-24] MEDS ORDERED: Spiriva Inhaler DEVICE* 1 EACH DEVICE INH SCH (15:00)
[2017-02-24] MEDS ORDERED: Spiriva Inhaler DEVICE* 1 EACH DEVICE INH ONE (15:00)
--- NOTE | 2017-02-24 17:47 | PN ---
Subjective Date of Service: 02/24/17 Interval History: Patient feels worse overnight with increased O2 requirements. Back on 4L in the morning but significantly more SOB than yesterday. Able to converse without signs of fatigue. Patient states that she feels agitated after albuterol dosing for which she needs valium. Patient feels like she needs to walk more around the unit to keep from decompensating. Patient denies CP, SOB, N/V, Abdominal pain, F/C. Patient states she has been having continued fecal incontinence of loose stool which is at baseline. Family History: Unchanged from Admission Social History: Unchanged from Admission Past Medical History: Unchanged from Admission Objective Active Medications: Hydrocodone Bitart/Acetaminophen ([place] 5-325 Tab*) 1 tab PO Q6H PRN PRN Reason: PAIN Citalopram Hydrobromide (Celexa Tab*) 40 mg PO DAILY [facility] Last Admin: 02/24/17 09:04 Dose: 40 mg Diazepam (Valium Tab(*)) 5 mg PO TID PRN PRN Reason: ANXIETY Last Admin: 02/24/17 09:04 Dose: 5 mg Heparin Sodium (Porcine) (Heparin Vial(*)) 5,000 units SUBCUT Q8HR [facility] Last Admin: 02/24/17 14:20 Dose: 5,000 units Ceftriaxone Sodium 1,000 mg/ (Sodium Chloride) 50 mls @ 200 mls/hr IVPB Q24H [facility] Last Admin: 02/24/17 00:25 Dose: 200 mls/hr Azithromycin 500 mg/ Sodium (Chloride) 250 mls @ 250 mls/hr IVPB Q24H [facility] Last Admin: 02/24/17 01:12 Dose: 250 mls/hr Levalbuterol HCl (Xopenex 0.63mg/3ml Neb*) 0.63 mg INH Q2H PRN PRN Reason: SHORTNESS OF BREATH Methimazole (Tapazole Tab*) 5 mg PO DAILY [facility] Last Admin: 02/24/17 09:04 Dose: 5 mg Mometasone Furoate/Formoterol Fumar (Dulera 200/5 Mdi*) 2 puff INH BID [facility] Last Admin: 02/24/17 08:06 Dose: 2 puff Nicotine (Nicotine Patch 21 Mg/24 Hr*) 1 patch TRANSDERM DAILY [facility] Last Admin: 02/24/17 09:04 Dose: 1 patch Ondansetron HCl (Zofran Inj*) 4 mg IV Q6H PRN PRN Reason: NAUSEA Oseltamivir Phosphate (Tamiflu Cap*) 30 mg PO BID [facility] Stop: 02/27/17 09:01 Last Admin: 02/24/17 09:04 Dose: 30 mg Pharmacy Profile Note (Nicotine Patch Removal Note*) 1 note FOLLOW UP 2100 [facility] Last Admin: 02/23/17 21:05 Dose: 1 note Prednisone (Deltasone Tab*) 60 mg PO DAILY [facility] Last Admin: 02/24/17 09:04 Dose: 60 mg Tiotropium [place] (Spiriva Cap.Inh*) 1 cap INH DAILY [facility] Vital Signs 02/23/17 02/23/17 02/23/17 20:00 20:13 20:59 Temperature 98.0 F Pulse Rate 85 95 Respiratory 18 16 18 Rate Blood Pressure 118/68 (mmHg) O2 Sat by Pulse 93 95 Oximetry 02/23/17 02/23/17 02/24/17 21:05 22:59 00:11 Temperature 98.5 F Pulse Rate 88 Respiratory 20 16 Rate Blood Pressure 122/60 (mmHg) O2 Sat by Pulse 93 93 Oximetry 02/24/17 02/24/17 02/24/17 00:25 02:25 04:30 Temperature 98.3 F Pulse Rate 72 Respiratory 28 18 16 Rate Blood Pressure 113/45 (mmHg) O2 Sat by Pulse 100 Oximetry 02/24/17 02/24/17 02/24/17 07:53 08:00 09:04 Temperature 97.8 F Pulse Rate 97 68 Respiratory 20 22 22 Rate Blood Pressure 140/64 (mmHg) O2 Sat by Pulse 95 98 Oximetry 02/24/17 02/24/17 02/24/17 10:56 11:13 11:40 Temperature 98.5 F Pulse Rate 89 88 Respiratory 18 20 20 Rate Blood Pressure 127/70 (mmHg) O2 Sat by Pulse 94 100 Oximetry 02/24/17 14:25 Temperature Pulse Rate 104 Respiratory 18 Rate Blood Pressure (mmHg) O2 Sat by Pulse 90 Oximetry Oxygen Devices in Use Now: - - 4L Appearance: Patient is a 71yo female who appears older than stated age and is sitting in the bed in mild distress with increased work of breathing. Eyes: No Scleral Icterus, PERRLA Ears/Nose/Mouth/Throat: Clear Oropharnyx, Mucous Membranes Moist, - - Edentulous. Neck: NL Appearance and Movements; NL JVP, Trachea Midline Respiratory: Symmetrical Chest Expansion and Respiratory Effort, - - Rhonchi and expiratory wheezes in bilateral lower lung sweet. Cardiovascular: NL Sounds; No Murmurs; No JVD, RRR, No Edema Abdominal: No Hepatosplenomegaly, - - Normal sounds. No distension. Slight general palpation which patient attributes to coughing. Lymphatic: No Cervical Adenopathy Extremities: No Edema Skin: No Rash or Ulcers, No Nodules or Sclerosis Neurological: Alert and Oriented x 3 Result Diagrams: 02/24/17 09:28 02/24/17 09:28 Additional Lab and Data: Lab Results 02/22/17 02/22/17 02/22/17 Range/Units 20:30 20:30 20:30 WBC (3.5-10.8) 10^3/ul RBC (4.0-5.4) 10^6/ul Hgb (12.0-16.0) g/dl Hct (35-47) % MCV (80-97) fL MCH (27-31) pg MCHC (31-36) g/dl RDW (10.5-15) % Plt Count (150-450) 10^3/ul MPV (7.4-10.4) um3 Neut % (Auto) (38-83) % Lymph % (Auto) (25-47) % [place] % (Auto) (1-9) % Eos % (Auto) (0-6) % Baso % (Auto) (0-2) % Absolute Neuts (auto) (1.5-7.7) 10^3/ul Absolute Lymphs (auto) (1.0-4.8) 10^3/ul Absolute Monos (auto) (0-0.8) 10^3/ul Absolute Eos (auto) (0-0.6) 10^3/ul Absolute Basos (auto) (0-0.2) 10^3/ul Absolute Nucleated RBC 10^3/ul Nucleated RBC % INR (Anticoag Therapy) 0.93 (0.89-1.11) APTT 29.4 (26.0-36.3) seconds Sodium 137 (133-145) mmol/L Potassium 4.0 (3.5-5.0) mmol/L Chloride 106 (101-111) mmol/L Carbon Dioxide 28 (22-32) mmol/L Anion Gap 3 (2-11) mmol/L BUN 10 (6-24) mg/dL Creatinine 1.06 H (0.51-0.95) mg/dL Est GFR ( Amer) 65.4 (>60) Est GFR (Non-Af Amer) 50.8 (>60) BUN/Creatinine Ratio 9.4 (8-20) Glucose 97 (70-100) mg/dL Lactic Acid (0.5-2.0) mmol/L Calcium 8.3 L (8.6-10.3) mg/dL Magnesium 1.8 L (1.9-2.7) mg/dL Total Bilirubin 0.30 (0.2-1.0) mg/dL AST 17 (13-39) U/L ALT 15 (7-52) U/L Alkaline Phosphatase 59 (34-104) U/L Total Creatine Kinase 98 (10-223) U/L CK-MB (CK-2) 2.9 (0.6-6.3) ng/mL Troponin I 0.01 (<0.04) ng/mL C-Reactive Protein 4.08 (< 5.00) mg/L B-Natriuretic Peptide 128 H ( - 100) pg/mL Total Protein 5.9 L (6.4-8.9) g/dL Albumin 3.3 (3.2-5.2) g/dL Globulin 2.6 (2-4) g/dL Albumin/Globulin Ratio 1.3 (1-3) Lipase < 10 L (11.0-82.0) U/L Urine Color Urine Appearance Urine pH (5-9) Ur Specific [place] (1.010-1.030) Urine Protein (Negative) Urine Ketones (Negative) Urine Blood (Negative) Urine Nitrate (Negative) Urine Bilirubin (Negative) Urine Urobilinogen (Negative) Ur Leukocyte Esterase (Negative) Urine Glucose (Negative) Influenza A (Rapid) (Negative) Influenza B (Rapid) (Negative) 02/22/17 02/22/17 02/22/17 Range/Units 20:30 20:30 21:16 WBC 8.0 (3.5-10.8) 10^3/ul RBC 3.90 L (4.0-5.4) 10^6/ul Hgb 13.4 (12.0-16.0) g/dl Hct 40 (35-47) % MCV 103 H (80-97) fL MCH 35 H (27-31) pg MCHC 34 (31-36) g/dl RDW 16 H (10.5-15) % Plt Count 253 (150-450) 10^3/ul MPV 8 (7.4-10.4) um3 Neut % (Auto) 54.3 (38-83) % Lymph % (Auto) 36.7 (25-47) % [place] % (Auto) 8.0 (1-9) % Eos % (Auto) 0.6 (0-6) % Baso % (Auto) 0.4 (0-2) % Absolute Neuts (auto) 4.4 (1.5-7.7) 10^3/ul Absolute Lymphs (auto) 2.9 (1.0-4.8) 10^3/ul Absolute Monos (auto) 0.6 (0-0.8) 10^3/ul Absolute Eos (auto) 0 (0-0.6) 10^3/ul Absolute Basos (auto) 0 (0-0.2) 10^3/ul Absolute Nucleated RBC 0.01 10^3/ul Nucleated RBC % 0.1 INR (Anticoag Therapy) (0.89-1.11) APTT (26.0-36.3) seconds Sodium (133-145) mmol/L Potassium (3.5-5.0) mmol/L Chloride (101-111) mmol/L Carbon Dioxide (22-32) mmol/L Anion Gap (2-11) mmol/L BUN (6-24) mg/dL Creatinine (0.51-0.95) mg/dL Est GFR ( Amer) (>60) Est GFR (Non-Af Amer) (>60) BUN/Creatinine Ratio (8-20) Glucose (70-100) mg/dL Lactic Acid 1.0 (0.5-2.0) mmol/L Calcium (8.6-10.3) mg/dL Magnesium (1.9-2.7) mg/dL Total Bilirubin (0.2-1.0) mg/dL AST (13-39) U/L ALT (7-52) U/L Alkaline Phosphatase (34-104) U/L Total Creatine Kinase (10-223) U/L CK-MB (CK-2) (0.6-6.3) ng/mL Troponin I (<0.04) ng/mL C-Reactive Protein (< 5.00) mg/L B-Natriuretic Peptide ( - 100) pg/mL Total Protein (6.4-8.9) g/dL Albumin (3.2-5.2) g/dL Globulin (2-4) g/dL Albumin/Globulin Ratio (1-3) Lipase (11.0-82.0) U/L Urine Color Urine Appearance Urine pH (5-9) Ur Specific [place] (1.010-1.030) Urine Protein (Negative) Urine Ketones (Negative) Urine Blood (Negative) Urine Nitrate (Negative) Urine Bilirubin (Negative) Urine Urobilinogen (Negative) Ur Leukocyte Esterase (Negative) Urine Glucose (Negative) Influenza A (Rapid) Negative (Negative) Influenza B (Rapid) Positive H (Negative) 02/22/17 Range/Units 21:30 WBC (3.5-10.8) 10^3/ul RBC (4.0-5.4) 10^6/ul Hgb (12.0-16.0) g/dl Hct (35-47) % MCV (80-97) fL MCH (27-31) pg MCHC (31-36) g/dl RDW (10.5-15) % Plt Count (150-450) 10^3/ul MPV (7.4-10.4) um3 Neut % (Auto) (38-83) % Lymph % (Auto) (25-47) % [place] % (Auto) (1-9) % Eos % (Auto) (0-6) % Baso % (Auto) (0-2) % Absolute Neuts (auto) (1.5-7.7) 10^3/ul Absolute Lymphs (auto) (1.0-4.8) 10^3/ul Absolute Monos (auto) (0-0.8) 10^3/ul Absolute Eos (auto) (0-0.6) 10^3/ul Absolute Basos (auto) (0-0.2) 10^3/ul Absolute Nucleated RBC 10^3/ul Nucleated RBC % INR (Anticoag Therapy) (0.89-1.11) APTT (26.0-36.3) seconds Sodium (133-145) mmol/L Potassium (3.5-5.0) mmol/L Chloride (101-111) mmol/L Carbon Dioxide (22-32) mmol/L Anion Gap (2-11) mmol/L BUN (6-24) mg/dL Creatinine (0.51-0.95) mg/dL Est GFR ( Amer) (>60) Est GFR (Non-Af Amer) (>60) BUN/Creatinine Ratio (8-20) Glucose (70-100) mg/dL Lactic Acid (0.5-2.0) mmol/L Calcium (8.6-10.3) mg/dL Magnesium (1.9-2.7) mg/dL Total Bilirubin (0.2-1.0) mg/dL AST (13-39) U/L ALT (7-52) U/L Alkaline Phosphatase (34-104) U/L Total Creatine Kinase (10-223) U/L CK-MB (CK-2) (0.6-6.3) ng/mL Troponin I (<0.04) ng/mL C-Reactive Protein (< 5.00) mg/L B-Natriuretic Peptide ( - 100) pg/mL Total Protein (6.4-8.9) g/dL Albumin (3.2-5.2) g/dL Globulin (2-4) g/dL Albumin/Globulin Ratio (1-3) Lipase (11.0-82.0) U/L Urine Color Yellow Urine Appearance Clear Urine pH 5.0 (5-9) Ur Specific [place] 1.012 (1.010-1.030) Urine Protein Negative (Negative) Urine Ketones Negative (Negative) Urine Blood Negative (Negative) Urine Nitrate Negative (Negative) Urine Bilirubin Negative (Negative) Urine Urobilinogen Negative (Negative) Ur Leukocyte Esterase Negative (Negative) Urine Glucose Negative (Negative) Influenza A (Rapid) (Negative) Influenza B (Rapid) (Negative) Microbiology and Other Data: Microbiology 02/23/17 10:00 Gram Stain - Final Sputum Expectorated Assess/Plan/Problems-Billing Assessment: Patient is a 71yo female with a PMH sigificant for COPD and breast cancer with Mets to lung and liver who presents with URI symptoms and tested positive for the flu, has possible lung consolidation on U/S representing Pneumonia, and possibly has a COPD exacerbation. Patient is feeling better with treatment but is unable to wean O2. - Patient Problems (1) Influenza B Current Visit: Yes Status: Acute Code(s): J10.1 - FLU DUE TO OTH IDENT INFLUENZA VIRUS W OTH RESP MANIFEST SNOMED Code(s): 09435453 Comment: Tested positive for Influenza B. Treated with Tamiflu. Stable (2) Pneumonia Current Visit: Yes Status: Acute Code(s): J18.9 - PNEUMONIA, UNSPECIFIED ORGANISM SNOMED Code(s): 866387046 Comment: Consolidation on lungs consistent with possible PNA. Patient has known pulmonary nodules without study for correlation. Will treat empirically for pneumonia due to immunocompromised state and concurrent COPD exacerbation. Sputum and blood culture pending. (3) COPD (chronic obstructive pulmonary disease) Current Visit: Yes Status: Acute Code(s): J44.9 - CHRONIC OBSTRUCTIVE PULMONARY DISEASE, UNSPECIFIED SNOMED Code(s): 27501751 Comment: Treated with Xopenex, Home inhalers, Tiotropum, Oral prednisone and antibiotics. Improving, no wheezing on exam. (4) Breast cancer Current Visit: Yes Status: Acute Code(s): C50.919 - MALIGNANT NEOPLASM OF UNSP SITE OF UNSPECIFIED FEMALE BREAST SNOMED Code(s): 314594226 Comment: Receives Chemo every Wednesday at 0800 in [place]. 02/24 dose ok to miss per oncologist. Patient will call when D/C'd (5) NSTEMI (non-ST elevated myocardial infarction) Current Visit: Yes Status: Acute Code(s): I21.4 - NON-ST ELEVATION (NSTEMI) MYOCARDIAL INFARCTION SNOMED Code(s): 998311193 Comment: Troponin elevated to .04. No chest pain or EKG changes. Likely represents demand ischemia. Consider outpatient stress test. (6) Anxiety Current Visit: Yes Status: Acute Code(s): F41.9 - ANXIETY DISORDER, UNSPECIFIED SNOMED Code(s): 25794392 Comment: Significant, exacerbated by albuterol. Switched to Xopenex and tiotropium. (7) Full code status Current Visit: Yes Status: Acute Code(s): Z78.9 - OTHER SPECIFIED HEALTH STATUS SNOMED Code(s): 053430117 (8) DVT prophylaxis Current Visit: Yes Status: Acute Code(s): IZV6601 - SNOMED Code(s): 465363115 Comment: Heparin SubQ Status and Disposition: Patient is admitted inpatient. Will discharge when medically able. Estimate 1-2 days.
[2017-02-24] MEDS: Tiotropium CAP.INH* CAP.INH/18 MCG (USE ORDER SET !) INH SCH (18:14)
[2017-02-24] MEDS: Levalbuterol 0.63MG/3ML NEB* UNIT OF USE INH PRN (18:50)
[2017-02-24] MEDS: Nicotine Patch Removal NOTE FOLLOW UP SCH (21:30)
[2017-02-25] MEDS: cefTRIAXone VIAL(*) 1,000 MG in NS 0.9% 50 ML* 50 ML IVPB SCH (00:29)
[2017-02-25] MEDS: HYDROcodone/ACETAMIN 5-325 MG* 1 TAB PO PRN ×2 (00:39→06:12)
[2017-02-25] MEDS: Azithromycin IV(*) 500 MG in NS 0.9% 250 ML* 250 ML IVPB SCH (01:27)
[2017-02-25] MEDS: Heparin VIAL(*) 5000 UNITS/ML VIAL (FIVE THOUSAND) SUBCUT SCH ×3 (06:05→21:43)
[2017-02-25] MEDS: Nicotine PATCH 21 MG/24 HR* PATCH TRANSDERM SCH ×2 (06:12→08:14)
[2017-02-25 06:41] LABS: Hematocrit 35 % (35-47); Hemoglobin 11.3 g/dl (12.0-16.0); Mean Corpuscular HGB Conc 32 g/dl (31-36); Mean Corpuscular Hemoglobin 34 pg (27-31); Mean Corpuscular Volume 104 fL (80-97); Mean Platelet Volume 8 um3 (7.4-10.4); Red Blood Count 3.38 10^6/ul (4.0-5.4); Red Cell Distribution Width 16 % (10.5-15); White Blood Count 11.6 10^3/ul (3.5-10.8)
[2017-02-25 07:26] LABS: Calcium 8.1 mg/dL (8.6-10.3); EGFR African American 97.4 (>60); EGFR Non-African American 75.7 (>60); Potassium 4.3 mmol/L (3.5-5.0)
[2017-02-25] MEDS: Methimazole TAB* 5 MG PO SCH (09:26)
[2017-02-25] MEDS: predniSONE TAB* 20 MG PO SCH (09:26)
[2017-02-25] MEDS: Oseltamivir CAP* 30 MG CAP PO SCH ×2 (09:26→21:40)
[2017-02-25] MEDS: Citalopram TAB* 40 MG PO SCH (09:26)
--- NOTE | 2017-02-25 09:35 | RAD ---
INDICATION: Pneumonia. COMPARISON: Comparison is made with a prior study from February 22, 2017. TECHNIQUE: A portable view of the chest was obtained. FINDINGS: The heart is mildly enlarged and unchanged from the prior study. There is a central venous catheter entering from the right jugular approach. The catheter tip projects in the right paratracheal region and appears unchanged. The lungs are hyperinflated. There is mild prominence of the interstitial markings. There is a more focal infiltrate present at the right lung base and a small a moderate size right pleural effusion. These findings have progressed from the prior exam. IMPRESSION: RIGHT BASILAR INFILTRATE AND PLEURAL EFFUSION DEMONSTRATING INTERVAL PROGRESSION.
[2017-02-25] MEDS: Mometasone/Formoter 200/5 MDI INH SCH ×2 (10:13→20:09)
[2017-02-25] MEDS: Tiotropium CAP.INH* CAP.INH/18 MCG (USE ORDER SET !) INH SCH (10:14)
[2017-02-25] MEDS ORDERED: Vancomycin(*) 750 MG in NS 0.9% 250 ML* 250 ML IVPB ONE (11:46)
[2017-02-25] MEDS ORDERED: Zosyn per Pharmacy* NOTE FOLLOW UP SCH (12:00)
[2017-02-25] MEDS: Levalbuterol 0.63MG/3ML NEB* UNIT OF USE INH PRN (12:13)
[2017-02-25] MEDS: Diazepam TAB(*) 5 MG PO PRN ×2 (12:54→21:41)
[2017-02-25] MEDS ORDERED: Vancomycin per Pharmacy* NOTE FOLLOW UP PRN (14:08)
--- NOTE | 2017-02-25 14:54 | PN ---
Subjective Date of Service: 02/25/17 Interval History: Patient was initially feeling better in the morning and was very excited about leaving. However as the day progressed patient's oxygen demand again increased to 6L and she was switched to a venturi mask. Patient denies any other symptoms including CP, SOB, N/V, F/C, Lightheadedness, Constipation or other pain. Patient continues to have incontinent loose stools. Family History: Unchanged from Admission Social History: Unchanged from Admission Past Medical History: Unchanged from Admission Objective Active Medications: Hydrocodone Bitart/Acetaminophen ([place] 5-325 Tab*) 1 tab PO Q6H PRN PRN Reason: PAIN Last Admin: 02/25/17 06:12 Dose: 1 tab Citalopram Hydrobromide (Celexa Tab*) 40 mg PO DAILY [facility] Last Admin: 02/25/17 09:26 Dose: 40 mg Diazepam (Valium Tab(*)) 5 mg PO TID PRN PRN Reason: ANXIETY Last Admin: 02/25/17 12:54 Dose: 5 mg Heparin Sodium (Porcine) (Heparin Vial(*)) 5,000 units SUBCUT Q8HR [facility] Last Admin: 02/25/17 13:29 Dose: 5,000 units Piperacillin Sod/Tazobactam (Sod 3.375 gm/ Sodium Chloride) 100 mls @ 25 mls/ hr IVPB Q8H [facility] Levalbuterol HCl (Xopenex 0.63mg/3ml Neb*) 0.63 mg INH Q2H PRN PRN Reason: SHORTNESS OF BREATH Last Admin: 02/25/17 12:13 Dose: 0.63 mg Methimazole (Tapazole Tab*) 5 mg PO DAILY [facility] Last Admin: 02/25/17 09:26 Dose: 5 mg Mometasone Furoate/Formoterol Fumar (Dulera 200/5 Mdi*) 2 puff INH BID [facility] Last Admin: 02/25/17 10:13 Dose: 2 puff Nicotine (Nicotine Patch 21 Mg/24 Hr*) 1 patch TRANSDERM DAILY [facility] Last Admin: 02/25/17 08:14 Dose: Not Given Ondansetron HCl (Zofran Inj*) 4 mg IV Q6H PRN PRN Reason: NAUSEA Oseltamivir Phosphate (Tamiflu Cap*) 30 mg PO BID [facility] Stop: 02/27/17 09:01 Last Admin: 02/25/17 09:26 Dose: 30 mg Pharmacy Consult (Zosyn Per Pharmacy*) 1 note FOLLOW UP .ZOSYN PER PHARMACY [facility] Pharmacy Consult (Vancomycin Per Pharmacy*) 1 note FOLLOW UP . PRN PRN Reason: PER PROTOCOL Pharmacy Profile Note (Nicotine Patch Removal Note*) 1 note FOLLOW UP 2100 [facility] Last Admin: 02/24/17 21:30 Dose: 1 note Prednisone (Deltasone Tab*) 60 mg PO DAILY [facility] Last Admin: 02/25/17 09:26 Dose: 60 mg Tiotropium [place] (Spiriva Cap.Inh*) 1 cap INH DAILY [facility] Last Admin: 02/25/17 10:14 Dose: 1 cap.inh Vital Signs 02/24/17 02/24/17 02/24/17 15:41 20:00 20:26 Temperature 98.8 F 97.6 F Pulse Rate 95 91 Respiratory 20 20 20 Rate Blood Pressure 135/78 138/59 (mmHg) O2 Sat by Pulse 92 94 Oximetry 02/24/17 02/24/17 02/24/17 21:33 23:33 23:59 Temperature 98.4 F Pulse Rate 81 Respiratory 18 20 24 Rate Blood Pressure 121/55 (mmHg) O2 Sat by Pulse 96 Oximetry 02/25/17 02/25/17 02/25/17 00:39 02:39 03:52 Temperature 98.1 F Pulse Rate 80 Respiratory 22 20 20 Rate Blood Pressure 118/50 (mmHg) O2 Sat by Pulse 97 Oximetry 02/25/17 02/25/17 02/25/17 05:19 06:12 07:57 Temperature 98.4 F Pulse Rate 79 Respiratory 20 22 Rate Blood Pressure 128/55 (mmHg) O2 Sat by Pulse 96 95 Oximetry 02/25/17 02/25/17 02/25/17 08:00 08:12 10:20 Temperature Pulse Rate Respiratory 22 22 24 Rate Blood Pressure (mmHg) O2 Sat by Pulse 95 Oximetry 02/25/17 02/25/17 12:14 12:54 Temperature Pulse Rate 76 Respiratory 24 24 Rate Blood Pressure (mmHg) O2 Sat by Pulse 98 Oximetry Oxygen Devices in Use Now: Venturi Mask - 5L Appearance: Patient is a 71yo female who appears older than stated age and is sitting in the bed with mildly increased work of breathing. Eyes: No Scleral Icterus, PERRLA Ears/Nose/Mouth/Throat: Clear Oropharnyx, Mucous Membranes Moist, - - Edentulous Neck: NL Appearance and Movements; NL JVP, Trachea Midline Respiratory: Symmetrical Chest Expansion and Respiratory Effort, - - Mild expiratory wheezes in all lung sweet. Cardiovascular: NL Sounds; No Murmurs; No JVD, RRR, No Edema Abdominal: NL Sounds; No Tenderness; No Distention, No Hepatosplenomegaly Lymphatic: No Cervical Adenopathy Extremities: No Edema, No Clubbing, Cyanosis Skin: No Rash or Ulcers Neurological: Alert and Oriented x 3 Result Diagrams: 02/25/17 05:49 02/25/17 05:49 Additional Lab and Data: Lab Results 02/22/17 02/22/17 02/22/17 Range/Units 20:30 20:30 20:30 WBC (3.5-10.8) 10^3/ul RBC (4.0-5.4) 10^6/ul Hgb (12.0-16.0) g/dl Hct (35-47) % MCV (80-97) fL MCH (27-31) pg MCHC (31-36) g/dl RDW (10.5-15) % Plt Count (150-450) 10^3/ul MPV (7.4-10.4) um3 Neut % (Auto) (38-83) % Lymph % (Auto) (25-47) % [place] % (Auto) (1-9) % Eos % (Auto) (0-6) % Baso % (Auto) (0-2) % Absolute Neuts (auto) (1.5-7.7) 10^3/ul Absolute Lymphs (auto) (1.0-4.8) 10^3/ul Absolute Monos (auto) (0-0.8) 10^3/ul Absolute Eos (auto) (0-0.6) 10^3/ul Absolute Basos (auto) (0-0.2) 10^3/ul Absolute Nucleated RBC 10^3/ul Nucleated RBC % INR (Anticoag Therapy) 0.93 (0.89-1.11) APTT 29.4 (26.0-36.3) seconds Sodium 137 (133-145) mmol/L Potassium 4.0 (3.5-5.0) mmol/L Chloride 106 (101-111) mmol/L Carbon Dioxide 28 (22-32) mmol/L Anion Gap 3 (2-11) mmol/L BUN 10 (6-24) mg/dL Creatinine 1.06 H (0.51-0.95) mg/dL Est GFR ( Amer) 65.4 (>60) Est GFR (Non-Af Amer) 50.8 (>60) BUN/Creatinine Ratio 9.4 (8-20) Glucose 97 (70-100) mg/dL Lactic Acid (0.5-2.0) mmol/L Calcium 8.3 L (8.6-10.3) mg/dL Magnesium 1.8 L (1.9-2.7) mg/dL Total Bilirubin 0.30 (0.2-1.0) mg/dL AST 17 (13-39) U/L ALT 15 (7-52) U/L Alkaline Phosphatase 59 (34-104) U/L Total Creatine Kinase 98 (10-223) U/L CK-MB (CK-2) 2.9 (0.6-6.3) ng/mL Troponin I 0.01 (<0.04) ng/mL C-Reactive Protein 4.08 (< 5.00) mg/L B-Natriuretic Peptide 128 H ( - 100) pg/mL Total Protein 5.9 L (6.4-8.9) g/dL Albumin 3.3 (3.2-5.2) g/dL Globulin 2.6 (2-4) g/dL Albumin/Globulin Ratio 1.3 (1-3) Lipase < 10 L (11.0-82.0) U/L Urine Color Urine Appearance Urine pH (5-9) Ur Specific [place] (1.010-1.030) Urine Protein (Negative) Urine Ketones (Negative) Urine Blood (Negative) Urine Nitrate (Negative) Urine Bilirubin (Negative) Urine Urobilinogen (Negative) Ur Leukocyte Esterase (Negative) Urine Glucose (Negative) Influenza A (Rapid) (Negative) Influenza B (Rapid) (Negative) 02/22/17 02/22/17 02/22/17 Range/Units 20:30 20:30 21:16 WBC 8.0 (3.5-10.8) 10^3/ul RBC 3.90 L (4.0-5.4) 10^6/ul Hgb 13.4 (12.0-16.0) g/dl Hct 40 (35-47) % MCV 103 H (80-97) fL MCH 35 H (27-31) pg MCHC 34 (31-36) g/dl RDW 16 H (10.5-15) % Plt Count 253 (150-450) 10^3/ul MPV 8 (7.4-10.4) um3 Neut % (Auto) 54.3 (38-83) % Lymph % (Auto) 36.7 (25-47) % [place] % (Auto) 8.0 (1-9) % Eos % (Auto) 0.6 (0-6) % Baso % (Auto) 0.4 (0-2) % Absolute Neuts (auto) 4.4 (1.5-7.7) 10^3/ul Absolute Lymphs (auto) 2.9 (1.0-4.8) 10^3/ul Absolute Monos (auto) 0.6 (0-0.8) 10^3/ul Absolute Eos (auto) 0 (0-0.6) 10^3/ul Absolute Basos (auto) 0 (0-0.2) 10^3/ul Absolute Nucleated RBC 0.01 10^3/ul Nucleated RBC % 0.1 INR (Anticoag Therapy) (0.89-1.11) APTT (26.0-36.3) seconds Sodium (133-145) mmol/L Potassium (3.5-5.0) mmol/L Chloride (101-111) mmol/L Carbon Dioxide (22-32) mmol/L Anion Gap (2-11) mmol/L BUN (6-24) mg/dL Creatinine (0.51-0.95) mg/dL Est GFR ( Amer) (>60) Est GFR (Non-Af Amer) (>60) BUN/Creatinine Ratio (8-20) Glucose (70-100) mg/dL Lactic Acid 1.0 (0.5-2.0) mmol/L Calcium (8.6-10.3) mg/dL Magnesium (1.9-2.7) mg/dL Total Bilirubin (0.2-1.0) mg/dL AST (13-39) U/L ALT (7-52) U/L Alkaline Phosphatase (34-104) U/L Total Creatine Kinase (10-223) U/L CK-MB (CK-2) (0.6-6.3) ng/mL Troponin I (<0.04) ng/mL C-Reactive Protein (< 5.00) mg/L B-Natriuretic Peptide ( - 100) pg/mL Total Protein (6.4-8.9) g/dL Albumin (3.2-5.2) g/dL Globulin (2-4) g/dL Albumin/Globulin Ratio (1-3) Lipase (11.0-82.0) U/L Urine Color Urine Appearance Urine pH (5-9) Ur Specific [place] (1.010-1.030) Urine Protein (Negative) Urine Ketones (Negative) Urine Blood (Negative) Urine Nitrate (Negative) Urine Bilirubin (Negative) Urine Urobilinogen (Negative) Ur Leukocyte Esterase (Negative) Urine Glucose (Negative) Influenza A (Rapid) Negative (Negative) Influenza B (Rapid) Positive H (Negative) 02/22/17 Range/Units 21:30 WBC (3.5-10.8) 10^3/ul RBC (4.0-5.4) 10^6/ul Hgb (12.0-16.0) g/dl Hct (35-47) % MCV (80-97) fL MCH (27-31) pg MCHC (31-36) g/dl RDW (10.5-15) % Plt Count (150-450) 10^3/ul MPV (7.4-10.4) um3 Neut % (Auto) (38-83) % Lymph % (Auto) (25-47) % [place] % (Auto) (1-9) % Eos % (Auto) (0-6) % Baso % (Auto) (0-2) % Absolute Neuts (auto) (1.5-7.7) 10^3/ul Absolute Lymphs (auto) (1.0-4.8) 10^3/ul Absolute Monos (auto) (0-0.8) 10^3/ul Absolute Eos (auto) (0-0.6) 10^3/ul Absolute Basos (auto) (0-0.2) 10^3/ul Absolute Nucleated RBC 10^3/ul Nucleated RBC % INR (Anticoag Therapy) (0.89-1.11) APTT (26.0-36.3) seconds Sodium (133-145) mmol/L Potassium (3.5-5.0) mmol/L Chloride (101-111) mmol/L Carbon Dioxide (22-32) mmol/L Anion Gap (2-11) mmol/L BUN (6-24) mg/dL Creatinine (0.51-0.95) mg/dL Est GFR ( Amer) (>60) Est GFR (Non-Af Amer) (>60) BUN/Creatinine Ratio (8-20) Glucose (70-100) mg/dL Lactic Acid (0.5-2.0) mmol/L Calcium (8.6-10.3) mg/dL Magnesium (1.9-2.7) mg/dL Total Bilirubin (0.2-1.0) mg/dL AST (13-39) U/L ALT (7-52) U/L Alkaline Phosphatase (34-104) U/L Total Creatine Kinase (10-223) U/L CK-MB (CK-2) (0.6-6.3) ng/mL Troponin I (<0.04) ng/mL C-Reactive Protein (< 5.00) mg/L B-Natriuretic Peptide ( - 100) pg/mL Total Protein (6.4-8.9) g/dL Albumin (3.2-5.2) g/dL Globulin (2-4) g/dL Albumin/Globulin Ratio (1-3) Lipase (11.0-82.0) U/L Urine Color Yellow Urine Appearance Clear Urine pH 5.0 (5-9) Ur Specific [place] 1.012 (1.010-1.030) Urine Protein Negative (Negative) Urine Ketones Negative (Negative) Urine Blood Negative (Negative) Urine Nitrate Negative (Negative) Urine Bilirubin Negative (Negative) Urine Urobilinogen Negative (Negative) Ur Leukocyte Esterase Negative (Negative) Urine Glucose Negative (Negative) Influenza A (Rapid) (Negative) Influenza B (Rapid) (Negative) Microbiology and Other Data: Microbiology 02/23/17 10:00 Gram Stain - Final Sputum Expectorated Assess/Plan/Problems-Billing Assessment: Patient is a 71yo female with a PMH sigificant for COPD and breast cancer with Mets to lung and liver who presents with URI symptoms and tested positive for the flu, has possible lung consolidation on U/S representing Pneumonia, and possibly has a COPD exacerbation. Patient is feeling better with treatment but is unable to wean O2. - Patient Problems (1) Influenza B Current Visit: Yes Status: Acute Code(s): J10.1 - FLU DUE TO OTH IDENT INFLUENZA VIRUS W OTH RESP MANIFEST SNOMED Code(s): 96459956 Comment: Tested positive for Influenza B. Treated with Tamiflu. Worsening. New infiltrate on CXR with pleural effusion. (2) Pneumonia Current Visit: Yes Status: Acute Code(s): J18.9 - PNEUMONIA, UNSPECIFIED ORGANISM SNOMED Code(s): 025121513 Comment: Consolidation on lungs consistent with possible PNA. Patient has known pulmonary nodules without study for correlation. Records from Oncologist pending. Sputum culture shows normal kirby. Infiltrate on CXR worsening with pleural effusion estimated at 400-600ml. Surgery consulted for thoracentesis. Appreciated input, said would not benefit dyspnea. Treating with Zosyn and Vancomycin for MRSA and Gram Negative coverage. Will recheck CXR to assess for change in pleural effusion after antibiotics. Consider diagnostic Thoracentesis if worsening or no interval improvement. (3) COPD (chronic obstructive pulmonary disease) Current Visit: Yes Status: Acute Code(s): J44.9 - CHRONIC OBSTRUCTIVE PULMONARY DISEASE, UNSPECIFIED SNOMED Code(s): 24267405 Comment: Treated with Xopenex, Home inhalers, Tiotropum, Oral prednisone and antibiotics. Wheezing on exam, imrpoved after Xopenex. (4) Breast cancer Current Visit: Yes Status: Acute Code(s): C50.919 - [facility] S[facility] OF UNSPECIFIED FEMALE BREAST SNOMED Code(s): 223139306 Comment: Receives Chemo every Wednesday at 0800 in [place]. 02/24 dose ok to miss per oncologist. Patient will call when D/C'd. Working to obtain records to assess extent of lung involvement. (5) NSTEMI (non-ST elevated myocardial infarction) Current Visit: Yes Status: Acute Code(s): I21.4 - NON-ST ELEVATION (NSTEMI) MYOCARDIAL INFARCTION SNOMED Code(s): 748095561 Comment: Troponin elevated to .04. No chest pain or EKG changes. Likely represents demand ischemia. Consider outpatient stress test. (6) Anxiety Current Visit: Yes Status: Acute Code(s): F41.9 - ANXIETY DISORDER, UNSPECIFIED SNOMED Code(s): 57177225 Comment: Significant, exacerbated by albuterol. Switched to Xopenex and tiotropium. (7) Full code status Current Visit: Yes Status: Acute Code(s): Z78.9 - OTHER SPECIFIED HEALTH STATUS SNOMED Code(s): 880990894 (8) DVT prophylaxis Current Visit: Yes Status: Acute Code(s): DKM2321 - SNOMED Code(s): 328554501 Comment: Heparin SubQ Status and Disposition: Patient is admitted inpatient. Will discharge when medically able. Estimate 1-2 days.
[2017-02-25] MEDS: ZOSYN 3.375 GM Q8H per EXTENDED INFUSION IVPB SCH ×2 (17:48)
[2017-02-25] MEDS: Nicotine Patch Removal NOTE FOLLOW UP SCH (21:42)
[2017-02-25] MEDS: Vancomycin(*) 500 MG in NS 0.9% 250 ML* 250 ML IVPB SCH (22:48)
[2017-02-26] MEDS: ZOSYN 3.375 GM Q8H per EXTENDED INFUSION IVPB SCH ×4 (00:46→09:11)
[2017-02-26] MEDS: Diazepam TAB(*) 5 MG PO PRN ×3 (02:16→21:09)
[2017-02-26] MEDS ORDERED: Vancomycin(*) 500 MG in NS 0.9% 250 ML* 250 ML IVPB SCH (03:00)
[2017-02-26] MEDS: Heparin VIAL(*) 5000 UNITS/ML VIAL (FIVE THOUSAND) SUBCUT SCH ×3 (06:05→23:10)
[2017-02-26] MEDS: HYDROcodone/ACETAMIN 5-325 MG* 1 TAB PO PRN (06:12)
[2017-02-26 06:33] LABS: Hematocrit 34 % (35-47); Hemoglobin 11.4 g/dl (12.0-16.0); Mean Corpuscular HGB Conc 34 g/dl (31-36); Mean Corpuscular Hemoglobin 34 pg (27-31); Mean Corpuscular Volume 102 fL (80-97); Mean Platelet Volume 8 um3 (7.4-10.4); Red Blood Count 3.34 10^6/ul (4.0-5.4); Red Cell Distribution Width 16 % (10.5-15); White Blood Count 10.5 10^3/ul (3.5-10.8)
[2017-02-26 06:54] LABS: BUN/Creatinine Ratio 18.1 (8-20); Calcium 8.2 mg/dL (8.6-10.3); EGFR African American 86.7 (>60); EGFR Non-African American 67.4 (>60); Potassium 3.9 mmol/L (3.5-5.0)
[2017-02-26] MEDS: predniSONE TAB* 20 MG PO SCH (09:11)
[2017-02-26] MEDS: Citalopram TAB* 40 MG PO SCH (09:11)
[2017-02-26] MEDS: Oseltamivir CAP* 30 MG CAP PO SCH ×2 (09:11→21:09)
[2017-02-26] MEDS: Nicotine PATCH 21 MG/24 HR* PATCH TRANSDERM SCH (09:12)
[2017-02-26] MEDS: Methimazole TAB* 5 MG PO SCH (09:12)
[2017-02-26] MEDS: Tiotropium CAP.INH* CAP.INH/18 MCG (USE ORDER SET !) INH SCH (10:40)
[2017-02-26] MEDS: Mometasone/Formoter 200/5 MDI INH SCH ×2 (10:41→20:51)
--- NOTE | 2017-02-26 11:42 | PN ---
Subjective Date of Service: 02/26/17 Interval History: Patient seen and examined at bedside. Reports intermittent "hot flashes" and chills, continued shortness of breath and increased oxygen needs. Denies chest discomfort, N/V. Pt reports that she has having having multiple stools daily, since prior to admission. Pt states that she doesn't ambulate much at home, will get a PT eval. Pt states that she uses 2L oxygen at home, and is requiring 4L via NC at this time. Pt states that at one point last night she needed 10L for a short period of time. Tele: Sinus rhythm - Sinus tach, rate 60-100's. Family History: Unchanged from Admission Social History: Unchanged from Admission Past Medical History: Unchanged from Admission Objective Active Medications: Hydrocodone Bitart/Acetaminophen ([place] 5-325 Tab*) 1 tab PO Q6H PRN Reason: PAIN Citalopram Hydrobromide (Celexa Tab*) 40 mg PO DAILY [facility] Diazepam (Valium Tab(*)) 5 mg PO TID PRN Reason: ANXIETY Heparin Sodium (Porcine) (Heparin Vial(*)) 5,000 units SUBCUT Q8HR [facility] Piperacillin Sod/Tazobactam (Sod 3.375 gm/ Sodium Chloride) 100 mls @ 25 mls/ hr IVPB Q8H [facility] Vancomycin HCl 500 mg/ Sodium (Chloride) 250 mls @ 166.67 mls/hr IVPB 0300, 1500 [facility] Levalbuterol HCl (Xopenex 0.63mg/3ml Neb*) 0.63 mg INH Q2H PRN Reason: SHORTNESS OF BREATH Methimazole (Tapazole Tab*) 5 mg PO DAILY [facility] Mometasone Furoate/Formoterol Fumar (Dulera 200/5 Mdi*) 2 puff INH BID [facility] Nicotine (Nicotine Patch 21 Mg/24 Hr*) 1 patch TRANSDERM DAILY [facility] Ondansetron HCl (Zofran Inj*) 4 mg IV Q6H PRN Reason: NAUSEA Oseltamivir Phosphate (Tamiflu Cap*) 30 mg PO BID [facility] Stop: 02/27/17 09:01 Pharmacy Consult (Zosyn Per Pharmacy*) 1 note FOLLOW UP .ZOSYN PER PHARMACY [facility] Pharmacy Consult (Vancomycin Per Pharmacy*) 1 note FOLLOW UP . PRN Pharmacy Profile Note (Nicotine Patch Removal Note*) 1 note FOLLOW UP 2100 [facility] Pharmacy Profile Note (Vancomycin Trough Check) 1 note FOLLOW UP 1500 [facility] Stop: 02/27/17 15:01 Prednisone (Deltasone Tab*) 60 mg PO DAILY [facility] Tiotropium [place] (Spiriva Cap.Inh*) 1 cap INH DAILY [facility] Vital Signs 02/25/17 02/25/17 02/25/17 12:14 12:54 16:21 Temperature 98.8 F Pulse Rate 76 76 Respiratory 24 24 21 Rate Blood Pressure 120/62 (mmHg) O2 Sat by Pulse 98 98 Oximetry 02/25/17 02/25/17 02/25/17 19:15 19:19 20:00 Temperature 98.0 F Pulse Rate 86 71 Respiratory 24 14 Rate Blood Pressure 119/59 (mmHg) O2 Sat by Pulse 98 98 Oximetry 02/25/17 02/25/17 02/25/17 21:41 23:37 23:41 Temperature 98.1 F Pulse Rate 71 Respiratory 18 18 22 Rate Blood Pressure 98/42 (mmHg) O2 Sat by Pulse Oximetry 02/26/17 02/26/17 02/26/17 00:00 02:16 03:44 Temperature 98.6 F Pulse Rate 81 Respiratory 20 20 Rate Blood Pressure 120/95 (mmHg) O2 Sat by Pulse 98 95 Oximetry 02/26/17 02/26/17 02/26/17 04:16 06:12 07:51 Temperature 98.1 F Pulse Rate 68 Respiratory 20 20 20 Rate Blood Pressure 119/61 (mmHg) O2 Sat by Pulse 99 Oximetry 02/26/17 02/26/17 02/26/17 08:00 10:43 10:44 Temperature Pulse Rate 68 68 Respiratory 20 20 20 Rate Blood Pressure (mmHg) O2 Sat by Pulse 99 99 Oximetry Oxygen Devices in Use Now: Venturi Mask - 5L Appearance: NAD, laying in bed Ears/Nose/Mouth/Throat: Mucous Membranes Moist Respiratory: Symmetrical Chest Expansion and Respiratory Effort, - - Exp wheeze Cardiovascular: NL Sounds; No Murmurs; No JVD, RRR Abdominal: NL Sounds; No Tenderness; No Distention Extremities: No Edema Skin: No Rash or Ulcers Neurological: Alert and Oriented x 3, NL Muscle Strength and Tone Lines/Tubes/Other Access: Clean, Dry and Intact Other Access - Power port, site benign Nutrition: Taking PO's Result Diagrams: 02/26/17 06:00 02/26/17 06:00 Additional Lab and Data: Microbiology and Other Data: Microbiology 02/23/17 10:00 Gram Stain - Final Sputum Expectorated Assess/Plan/Problems-Billing Assessment: Ms. Carlson is a 71yo female with a PMH sigificant for COPD and breast cancer with Mets to lung and liver who presents with URI symptoms and tested positive for the flu, has possible lung consolidation on U/S representing Pneumonia, and possibly has a COPD exacerbation. Patient is feeling better with treatment but is unable to wean O2. - Patient Problems (1) Influenza B Code(s): J10.1 - FLU DUE TO OTH IDENT INFLUENZA VIRUS W OTH RESP MANIFEST SNOMED Code(s): 29946326 Comment: - Positive for Influenza B. - Worsening. New infiltrate on CXR with pleural effusion. - Continue Tamiflu. (2) Pneumonia Code(s): J18.9 - PNEUMONIA, UNSPECIFIED ORGANISM SNOMED Code(s): 648468174 Comment: - Afebrile and Leukocytosis resolved. - Consolidation on lungs consistent with possible PNA. Patient has known pulmonary nodules without study for correlation. Records from Oncologist pending. - Sputum culture shows normal kirby. - Infiltrate on CXR worsening with pleural effusion estimated at 400-600ml. Surgery consulted for thoracentesis. Appreciated input, said would not benefit dyspnea. - Discontinue Zosyn and Vancomycin. Resume Ceftriaxone as I feel we do not need MRSA coverage at this time. Completed course of Azithromycin - Repeat chest xray in AM. - Will consider diagnostic Thoracentesis if worsening or no interval improvement , with repeat chest xray. (3) COPD (chronic obstructive pulmonary disease) Code(s): J44.9 - CHRONIC OBSTRUCTIVE PULMONARY DISEASE, UNSPECIFIED SNOMED Code(s): 82117173 Comment: - Possible exacerbation. - Wheezing on exam, imrpoved after Xopenex. - Continue Xopenex, Home inhalers, Tiotropum, Oral prednisone (will start taper ) and antibiotics. (4) Elevated troponin Code(s): R74.8 - ABNORMAL LEVELS OF OTHER SERUM ENZYMES SNOMED Code(s): 106972682 Comment: - Troponin 0.01, 0.04, 0.04 - Denies chest pain and no EKG changes - Suspect demand ischemia - Consider outpatient stress testing once recovered from acute illness (5) Breast cancer Code(s): C50.919 - MALIGNANT NEOPLASM OF [facility] SITE OF UNSPECIFIED FEMALE BREAST SNOMED Code(s): 419345754 Comment: - Working to obtain records to assess extent of lung involvement. - Receives Chemo every Wednesday at 0800 in [place]. - 02/24 dose ok to miss per oncologist. - Patient will call when D/C'd. (6) Anxiety Code(s): F41.9 - ANXIETY DISORDER, UNSPECIFIED SNOMED Code(s): 45401456 Comment: - Improved, was significant with use of albuterol. - Switched to Xopenex and tiotropium. (7) DVT prophylaxis Code(s): SFX0246 - SNOMED Code(s): 197015286 Comment: - Heparin SubQ (8) Full code status Code(s): Z78.9 - OTHER SPECIFIED HEALTH STATUS SNOMED Code(s): 383421679 Status and Disposition: Patient is admitted inpatient. Will discharge when medically able. Estimate 1-2 days.
[2017-02-26] MEDS ORDERED: Simethicone TAB* 80 MG TAB.CHEW PO PRN (19:53)
[2017-02-26] MEDS: Loperamide CAP* 2 MG PO PRN (21:09)
[2017-02-26] MEDS: Nicotine Patch Removal NOTE FOLLOW UP SCH (21:17)
[2017-02-26] MEDS: cefTRIAXone VIAL(*) 1,000 MG in NS 0.9% 50 ML* 50 ML IVPB SCH (23:10)
[2017-02-27] MEDS: HYDROcodone/ACETAMIN 5-325 MG* 1 TAB PO PRN (02:32)
[2017-02-27] MEDS: Heparin VIAL(*) 5000 UNITS/ML VIAL (FIVE THOUSAND) SUBCUT SCH ×3 (05:30→20:45)
[2017-02-27 06:08] LABS: Hematocrit 35 % (35-47); Hemoglobin 11.6 g/dl (12.0-16.0); Mean Corpuscular HGB Conc 33 g/dl (31-36); Mean Corpuscular Hemoglobin 34 pg (27-31); Mean Corpuscular Volume 102 fL (80-97); Mean Platelet Volume 8 um3 (7.4-10.4); Red Blood Count 3.45 10^6/ul (4.0-5.4); Red Cell Distribution Width 16 % (10.5-15); White Blood Count 9.9 10^3/ul (3.5-10.8)
[2017-02-27 06:20] LABS: BUN/Creatinine Ratio 22.8 (8-20); Calcium 8.4 mg/dL (8.6-10.3); EGFR African American 91.7 (>60); EGFR Non-African American 71.3 (>60); Potassium 4.1 mmol/L (3.5-5.0)
[2017-02-27] MEDS: Tiotropium CAP.INH* CAP.INH/18 MCG (USE ORDER SET !) INH SCH (08:30)
[2017-02-27] MEDS: Mometasone/Formoter 200/5 MDI INH SCH ×2 (08:31→20:08)
--- NOTE | 2017-02-27 08:58 | RAD ---
INDICATION: Evaluate pneumonia COMPARISON: Most recent comparison chest x-ray February 25, 2017 TECHNIQUE: PA and lateral views of the chest were obtained. FINDINGS: The patient's right internal jugular vein Mediport appears to be partly looped at the lower internal jugular vein and the tip terminates at the superiormost superior vena cava. The heart and mediastinum are normal in size and contour. There is calcified atherosclerosis overlying the arch of the aorta. There is persistent density overlying the right lung base similar in appearance to the February 25, 2017 chest x-ray. Aeration is worse when compared to the February 22, 2017 chest x-ray. The lungs appear hyperaerated and there are increased interstitial lung markings diffusely. Visualized bones are normal for the patient's age. There is no radiographic evidence of free air beneath the diaphragm IMPRESSION: 1. PERSISTENT DENSITY OBSCURING THE RIGHT LUNG BASE SIMILAR APPEARANCE TO THE MOST RECENT CHEST X-RAY AND WORSE WHEN COMPARED TO FEBRUARY 22, 2017. CONSOLIDATION AND/OR PLEURAL EFFUSION ARE CONSIDERED MOST LIKELY. 2. MALPOSITIONED RIGHT INTERNAL JUGULAR VEIN MEDIPORT. PLEASE CORRELATE TO PORT FUNCTION.
[2017-02-27] MEDS: Nicotine PATCH 21 MG/24 HR* PATCH TRANSDERM SCH (10:00)
[2017-02-27] MEDS: Methimazole TAB* 5 MG PO SCH (10:00)
[2017-02-27] MEDS: Oseltamivir CAP* 30 MG CAP PO SCH (10:00)
[2017-02-27] MEDS: predniSONE TAB* 50 MG PO SCH (10:00)
[2017-02-27] MEDS: Citalopram TAB* 40 MG PO SCH (10:00)
[2017-02-27] MEDS: Loperamide CAP* 2 MG PO PRN (10:07)
[2017-02-27] MEDS ORDERED: Albuterol/Ipratropium NEB.SOL* Albuterol 2.5 MG/Ipratropium 0.5 MG 3 ML INH PRN (11:36)
--- NOTE | 2017-02-27 11:38 | PN ---
Subjective Date of Service: 02/27/17 Interval History: This is a 71 yo female with metastatic breast CA followed by oncology in [place] who presented with cough, fever and SOB admitted with influenza PNA. She initially had a worsening infiltrate and developed a right sided effusion, abx coverage was advanced to Zosyn/Vanco. Abx were narrowed back to Ceftriaxone yesterday. She states she feels slightly better today. Still dyspneic at rest however with a freq productive cough. Objective Active Medications: Hydrocodone Bitart/Acetaminophen ([place] 5-325 Tab*) 1 tab PO Q6H PRN PRN Reason: PAIN Last Admin: 02/27/17 02:32 Dose: 1 tab Citalopram Hydrobromide (Celexa Tab*) 40 mg PO DAILY DEBORAH Last Admin: 02/27/17 10:00 Dose: 40 mg Diazepam (Valium Tab(*)) 5 mg PO TID PRN PRN Reason: ANXIETY Last Admin: 02/26/17 21:09 Dose: 5 mg Heparin Sodium (Porcine) (Heparin Vial(*)) 5,000 units SUBCUT Q8HR DEBORAH Last Admin: 02/27/17 05:30 Dose: 5,000 units Heparin Sodium (Porcine) (Heparin Flush Port (Ivad)) 5 ml FLUSH DAILY DEBORAH PRN Reason: Protocol Last Admin: 02/27/17 10:42 Dose: Not Given Ceftriaxone Sodium 1,000 mg/ (Sodium Chloride) 50 mls @ 200 mls/hr IVPB Q24H DEBORAH Last Admin: 02/26/17 23:10 Dose: 200 mls/hr Levalbuterol HCl (Xopenex 0.63mg/3ml Neb*) 0.63 mg INH Q2H PRN PRN Reason: SHORTNESS OF BREATH Last Admin: 02/25/17 12:13 Dose: 0.63 mg Loperamide HCl (Imodium Cap*) 2 mg PO .SEE DIRECTIONS PRN PRN Reason: DIARRHEA Last Admin: 02/27/17 10:07 Dose: 2 mg Methimazole (Tapazole Tab*) 5 mg PO DAILY [facility] Last Admin: 02/27/17 10:00 Dose: 5 mg Mometasone Furoate/Formoterol Fumar (Dulera 200/5 Mdi*) 2 puff INH BID [facility] Last Admin: 02/27/17 08:31 Dose: 2 puff Nicotine (Nicotine Patch 21 Mg/24 Hr*) 1 patch TRANSDERM DAILY [facility] Last Admin: 02/27/17 10:00 Dose: 1 patch Ondansetron HCl (Zofran Inj*) 4 mg IV Q6H PRN PRN Reason: NAUSEA Pharmacy Profile Note (Nicotine Patch Removal Note*) 1 note FOLLOW UP 2100 [facility] Last Admin: 02/26/17 21:17 Dose: 1 note Prednisone (Deltasone Tab*) 50 mg PO DAILY [facility] Last Admin: 02/27/17 10:00 Dose: 50 mg Simethicone (Mylicon Tab*) 80 mg PO Q6H PRN PRN Reason: gas Last Admin: 02/26/17 21:09 Dose: 80 mg Tiotropium [place] (Spiriva Cap.Inh*) 1 cap INH DAILY [facility] Last Admin: 02/27/17 08:30 Dose: 1 cap.inh Vital Signs: Temp Pulse Resp BP Pulse Ox 98.0 F 71 18 135/53 92 02/27/17 07:46 02/27/17 07:46 02/27/17 10:07 02/27/17 07:46 02/27/17 07:46 Oxygen Devices in Use Now: Venturi Mask - 5L Appearance: This is an elderly and chronically ill appearing female with freq productive cough, but able to speak in complete sentences. Respiratory: Symmetrical Chest Expansion and Respiratory Effort, - - diffuse wheezing and rhonchi Cardiovascular: RRR Abdominal: NL Sounds; No Tenderness; No Distention Extremities: No Edema Skin: No Rash or Ulcers Neurological: Alert and Oriented x 3 Result Diagrams: 02/27/17 05:33 02/27/17 05:33 Additional Lab and Data: Microbiology and Other Data: Microbiology 02/23/17 10:00 Gram Stain - Final Sputum Expectorated Diagnostic Imaging: CXR - 02/27 - Improved R lung aeration but with persistent R sided effusion and infiltrate Assess/Plan/Problems-Billing Assessment: Ms. Carlson is a 71yo female with a PMH sigificant for COPD and breast cancer with Mets to lung and liver who presents with URI symptoms and tested positive for the flu, with R sided pleural effusion and consolidation representing PNA with associated COPD exacerbation. - Patient Problems (1) Pneumonia Comment: Afebrile and Leukocytosis resolved. Consolidation on lungs consistent with possible PNA. Patient has known pulmonary nodules without study for correlation. Records from Oncologist pending. Sputum culture shows normal kirby. Infiltrate on CXR worsening with pleural effusion, worse 02/25 compared to admission, but better on comparison film this am Cont ceftriaxone, restart azithromycin for anti-inflammatory effect Completed Tamiflu Cont treatment for assoc COPD exacerbation Start flutter valve (2) Influenza B Comment: Positive for Influenza B, with assoc PNA Completed Tamiflu treatment (3) COPD exacerbation Comment: Assoc COPD exacerbation Cont corticosteroids and inhaled therapies (4) Anxiety Comment: Appears stable (5) Breast cancer Comment: Followed by oncology out of [place], [place] Reported metastatic process Generally travels for weekly chemo infusions, missed 02/24 therapy Records have not arrived for review (6) Elevated troponin Comment: Troponin 0.01, 0.04, 0.04 Denies chest pain and no EKG changes Suspect demand ischemia (7) Full code status (8) DVT prophylaxis Comment: - Heparin SubQ Status and Disposition: Inpatient. Slow improvement. Anticipate additional 2-3d LOS
[2017-02-27] MEDS: guaiFENesin ER TAB 600 MG PO SCH ×2 (12:38→20:45)
[2017-02-27] MEDS: Azithromycin IV(*) 250 MG in NS 0.9% 250 ML* 250 ML IVPB SCH (12:52)
[2017-02-27] MEDS ORDERED: Vancomycin Trough Check NOTE FOLLOW UP SCH (15:00)
[2017-02-27] MEDS: Diazepam TAB(*) 5 MG PO PRN (17:57)
[2017-02-27] MEDS: cefTRIAXone VIAL(*) 1,000 MG in NS 0.9% 50 ML* 50 ML IVPB SCH (22:46)
[2017-02-27] MEDS: Nicotine Patch Removal NOTE FOLLOW UP SCH (22:51)
[2017-02-28] MEDS: Diazepam TAB(*) 5 MG PO PRN (00:19)
[2017-02-28] MEDS: Heparin VIAL(*) 5000 UNITS/ML VIAL (FIVE THOUSAND) SUBCUT SCH ×3 (05:52→21:15)
[2017-02-28] MEDS: Tiotropium CAP.INH* CAP.INH/18 MCG (USE ORDER SET !) INH SCH (08:06)
[2017-02-28] MEDS: Mometasone/Formoter 200/5 MDI INH SCH ×2 (08:06→20:17)
[2017-02-28] MEDS: guaiFENesin ER TAB 600 MG PO SCH ×2 (08:29→21:14)
[2017-02-28] MEDS: Methimazole TAB* 5 MG PO SCH (08:29)
[2017-02-28] MEDS: Nicotine PATCH 21 MG/24 HR* PATCH TRANSDERM SCH (08:29)
[2017-02-28] MEDS: predniSONE TAB* 50 MG PO SCH (08:30)
[2017-02-28] MEDS: Loperamide CAP* 2 MG PO PRN ×2 (08:30→22:55)
[2017-02-28] MEDS: Citalopram TAB* 40 MG PO SCH (08:30)
--- NOTE | 2017-02-28 12:13 | PN ---
Subjective Date of Service: 02/28/17 Interval History: Patient reports some mild improvement in dyspnea. She got up and walked to the hallway and back earlier this am. She was severely SOB with that activity. She has been titrated down to 2L via NC at this time. She cont to have a freq productive cough. She states that she takes diazepam regularly at home to help with her anxiety which she would like to have more regularly while hospitalized. Objective Active Medications: Hydrocodone Bitart/Acetaminophen ([place] 5-325 Tab*) 1 tab PO Q6H PRN PRN Reason: PAIN Last Admin: 02/27/17 02:32 Dose: 1 tab Albuterol/Ipratropium (Duoneb (Albuterol 2.5 Mg/Ipratropium 0.5 Mg)) 1 neb INH Q4H PRN PRN Reason: SOB/WHEEZING Citalopram Hydrobromide (Celexa Tab*) 40 mg PO DAILY DEBORAH Last Admin: 02/28/17 08:30 Dose: 40 mg Guaifenesin (Mucinex*) 1,200 mg PO BID DEBORAH Last Admin: 02/28/17 08:29 Dose: 1,200 mg Heparin Sodium (Porcine) (Heparin Vial(*)) 5,000 units SUBCUT Q8HR DEBORAH Last Admin: 02/28/17 05:52 Dose: 5,000 units Heparin Sodium (Porcine) (Heparin Flush Port (Ivad)) 5 ml FLUSH DAILY DEBORAH PRN Reason: Protocol Last Admin: 02/28/17 08:30 Dose: 5 ml Ceftriaxone Sodium 1,000 mg/ (Sodium Chloride) 50 mls @ 200 mls/hr IVPB Q24H DEBORAH Last Admin: 02/27/17 22:46 Dose: 200 mls/hr Azithromycin 250 mg/ Sodium (Chloride) 250 mls @ 250 mls/hr IVPB Q24H DEBORAH Last Admin: 02/27/17 12:52 Dose: 250 mls/hr Loperamide HCl (Imodium Cap*) 2 mg PO .SEE DIRECTIONS PRN PRN Reason: DIARRHEA Last Admin: 02/28/17 08:30 Dose: 2 mg Methimazole (Tapazole Tab*) 5 mg PO DAILY [facility] Last Admin: 02/28/17 08:29 Dose: 5 mg Mometasone Furoate/Formoterol Fumar (Dulera 200/5 Mdi*) 2 puff INH BID [facility] Last Admin: 02/28/17 08:06 Dose: 2 puff Nicotine (Nicotine Patch 21 Mg/24 Hr*) 1 patch TRANSDERM DAILY [facility] Last Admin: 02/28/17 08:29 Dose: 1 patch Ondansetron HCl (Zofran Inj*) 4 mg IV Q6H PRN PRN Reason: NAUSEA Pharmacy Profile Note (Nicotine Patch Removal Note*) 1 note FOLLOW UP 2100 [facility] Last Admin: 02/27/17 22:51 Dose: 1 note Prednisone (Deltasone Tab*) 50 mg PO DAILY [facility] Last Admin: 02/28/17 08:30 Dose: 50 mg Simethicone (Mylicon Tab*) 80 mg PO Q6H PRN PRN Reason: gas Last Admin: 02/26/17 21:09 Dose: 80 mg Tiotropium [place] (Spiriva Cap.Inh*) 1 cap INH DAILY [facility] Last Admin: 02/28/17 08:06 Dose: 1 cap.inh Vital Signs: Temp Pulse Resp BP Pulse Ox 99.8 F 86 20 152/63 98 02/28/17 07:30 02/28/17 08:12 02/28/17 10:30 02/28/17 07:30 02/28/17 08:12 Oxygen Devices in Use Now: Nasal Cannula Appearance: Elderly female with is in mild resp distress. Able to complete full sentences, but noted tachypnea. Respiratory: Symmetrical Chest Expansion and Respiratory Effort, - - occ wheeze and rhonchi, less rhonchi than on prior exam Cardiovascular: NL Sounds; No Murmurs; No JVD, RRR Abdominal: NL Sounds; No Tenderness; No Distention Extremities: No Edema Skin: No Rash or Ulcers Neurological: Alert and Oriented x 3 Result Diagrams: 02/27/17 05:33 02/27/17 05:33 Additional Lab and Data: Microbiology and Other Data: Microbiology 02/23/17 10:00 Gram Stain - Final Sputum Expectorated Diagnostic Imaging: CXR - 02/27 - Improved R lung aeration but with persistent R sided effusion and infiltrate Assess/Plan/Problems-Billing Assessment: Ms. Carlson is a 71yo female with a PMH sigificant for COPD and breast cancer with Mets to lung and liver who presents with URI symptoms and tested positive for the flu, with R sided pleural effusion and consolidation representing PNA with associated COPD exacerbation. - Patient Problems (1) Pneumonia Comment: Afebrile and Leukocytosis resolved. Consolidation on lungs consistent with possible PNA. Patient has known pulmonary nodules without study for correlation. Records from Oncologist pending. Sputum culture shows normal kirby. Infiltrate on CXR worsening with pleural effusion, worse 02/25 compared to admission, but better on comparison film 02/27 Cont ceftriaxone, restarted azithromycin for anti-inflammatory effect Completed Tamiflu Cont treatment for assoc COPD exacerbation Cont flutter valve (2) Influenza B Comment: Positive for Influenza B, with assoc PNA Completed Tamiflu treatment (3) COPD exacerbation Comment: Assoc COPD exacerbation Cont corticosteroids and inhaled therapies (4) Anxiety Comment: Appears stable (5) Breast cancer Comment: Followed by oncology out of [place], [place] Reported metastatic process Generally travels for weekly chemo infusions, missed 02/24 therapy Records have not arrived for review (6) Elevated troponin Comment: Troponin 0.01, 0.04, 0.04 Denies chest pain and no EKG changes Suspect demand ischemia (7) Full code status (8) DVT prophylaxis Comment: - Heparin SubQ Status and Disposition: Inpatient. Slow improvement. Anticipate additional 2-3d LOS
[2017-02-28] MEDS: Diazepam TAB(*) 5 MG PO SCH ×2 (12:48→21:14)
[2017-02-28] MEDS: Azithromycin IV(*) 250 MG in NS 0.9% 250 ML* 250 ML IVPB SCH (12:49)
[2017-02-28] MEDS: cefTRIAXone VIAL(*) 1,000 MG in NS 0.9% 50 ML* 50 ML IVPB SCH (22:55)
[2017-02-28] MEDS: Nicotine Patch Removal NOTE FOLLOW UP SCH (23:15)
[2017-03-01] MEDS: HYDROcodone/ACETAMIN 5-325 MG* 1 TAB PO PRN (03:03)
[2017-03-01] MEDS: Heparin VIAL(*) 5000 UNITS/ML VIAL (FIVE THOUSAND) SUBCUT SCH ×2 (05:21→14:11)
[2017-03-01] MEDS: Mometasone/Formoter 200/5 MDI INH SCH (08:56)
[2017-03-01] MEDS: Tiotropium CAP.INH* CAP.INH/18 MCG (USE ORDER SET !) INH SCH (08:56)
[2017-03-01] MEDS: Diazepam TAB(*) 5 MG PO SCH ×2 (09:11→14:10)
[2017-03-01] MEDS: guaiFENesin ER TAB 600 MG PO SCH (09:11)
[2017-03-01] MEDS: predniSONE TAB* 50 MG PO SCH (09:11)
[2017-03-01] MEDS: Methimazole TAB* 5 MG PO SCH (09:11)
[2017-03-01] MEDS: Citalopram TAB* 40 MG PO SCH (09:11)
[2017-03-01] MEDS: Nicotine PATCH 21 MG/24 HR* PATCH TRANSDERM SCH (09:12)
[2017-03-01] MEDS: Loperamide CAP* 2 MG PO PRN (11:04)
--- NOTE | 2017-03-01 13:03 | RAD ---
INDICATION: Follow-up pneumonia COMPARISON: Most recent comparison chest x-rays dated February 27, 2017 TECHNIQUE: Single AP portable view of the chest was obtained. FINDINGS: Image quality is compromised due to the relative inferiority of a portable chest x-ray. Again partially visualized is a left internal jugular vein Mediport with the tip terminating at the superiormost portion of the superior vena cava. There is mild cardiomegaly with coarse atherosclerotic calcification overlying the arch of the aorta. There is persistent density obscuring the right lung base. The left lung appears adequately aerated. Visualized bones are normal for the patient's age. IMPRESSION: Persistent density obscuring the right lung base not significantly changed from the February 27, 2017 chest x-ray. Consolidation and/or pleural effusion is suspected.
[2017-03-01] MEDS: Azithromycin IV(*) 250 MG in NS 0.9% 250 ML* 250 ML IVPB SCH (14:11)
[2017-03-01 19:30] VITALS: BP 129/72
--- NOTE | 2017-03-02 16:42 | DS ---
Amended report to enter cosigning physician on report. DISCHARGE SUMMARY: DATE OF ADMISSION: 02/22/17 DATE OF DISCHARGE: 03/01/17 PRIMARY CARE PHYSICIAN: Dr. Dickinson, [facility]. MY ATTENDING WHILE IN THE HOSPITAL: Dr. Radha Deleon* (dictated by YNES Herring). PRIMARY DISCHARGE DIAGNOSES: 1. Pneumonia. 2. Influenza B. 3. Chronic obstructive pulmonary disease exacerbation. SECONDARY DISCHARGE DIAGNOSES: 1. Chronic obstructive pulmonary disease. 2. Breast cancer metastatic to the lungs and liver, on active chemo. STUDIES DONE WHILE IN THE HOSPITAL: Chest x-ray from 02/22/17 read as: There may be early infiltrate in the right base. Chest x-ray from 02/25/17 read as: Right basilar infiltrate and pleural effusion demonstrate interval progression. Chest x-ray from 02/27/17 read as: Persistent density obscuring the right lung base, similar appearance to most recent chest x-ray and worse when compared to 02/22/17, consolidation and/or pleural effusion are considered most likely. Malposition right internal jugular vein Mediport, please correlate port function. Chest x-ray from 03/01/17 read as: Persistent density obscuring the right lung base, not significantly changed from 02/27/17 chest x-ray, consolidation and/or pleural effusion is suspected. MEDICATIONS ON DISCHARGE: 1. Meloxicam 7.5 mg p.o. b.i.d. 2. Methimazole 5 mg p.o. daily. 3. [place] 1 tab p.o. q.6 hours as needed for pain. 4. Celexa 40 mg p.o. daily. 5. Ventolin inhaler 1 puff every 6 hours as needed for wheezing. 6. Cefpodoxime 200 mg p.o. q.12 hours x16. 7. Imodium 2 mg p.o. as needed for diarrhea. 8. Dulera 2 puffs inhalation b.i.d. 9. Nicotine patch 21 mg for 24 hours. 10. Simethicone 80 mg p.o. q.6 hours as needed. 11. Tiotropium/Spiriva inhaler 1 cap inhalation daily. 12. Mucinex 1200 mg p.o. b.i.d. 13. Prednisone 40 mg p.o. daily. 14. Xopenex 0.63 mg per 3 mL nebulized solution inhaler q.4 hours as needed. 15. Valium 5 mg p.o. t.i.d. as needed. New medications at discharge: 1. Cefpodoxime. 2. Imodium. 3. Dulera. 4. Nicotine. 5. Simethicone. 6. Tiotropium. 7. Mucinex. 8. Prednisone. 9. Xopenex. HOSPITAL COURSE: This is a brief summary of the patient's presentation. For more details, please see the history and physical from Cuate Handy NP, on . In brief, the patient is a 71-year-old female with past medical history as stated above, who presented for 5 days of progressive worsening shortness of breath with upper respiratory symptoms and body aches with subjective fevers. The patient was admitted after testing positive for influenza B and having possible pneumonia on chest x-ray. The patient was started on azithromycin, ceftriaxone, steroids, as well as inhalers. The patient improved for the first 2 days of her admission. The patient was initially on 4 L of oxygen and stayed that way but felt subjectively better. The patient then declined on 02/24/17 often times needing 6 units of oxygen, worse with activity. A repeat chest x- ray done at this time, which showed worsening as above, given the correlation between influenza and MRSA. The patient was switched to vancomycin and Zosyn for more broad antibiotic coverage. The patient improved on this regimen on and coverage was narrowed back to ceftriaxone and azithromycin on that day. The patient, at one point, needed up to 10 L of oxygen and was back down to 4 L. Of note, the patient had 2 troponins of 0.04 on admission, this was an NSTEMI attributed to demand ischemia and was not further investigated. There were no ST-segment changes or chest pain. Also, the patient was treated with Tamiflu on admission for her influenza B. The patient continued to improve on 02/28/17 being able to be weaned down to 2 L of oxygen via face mask that would be able to be taken off from meals without desaturation. On 03/01/17, the patient had finished her Tamiflu dose and her azithromycin dose with 6 days plus Z-Carlos, the patient was prescribed outpatient. The patient was feeling ready to go home and she was able to walk in the hallway with 3 L of oxygen without desaturating. The patient had home O2 and Durable Medical Equipment setup and it was decided for her to be discharged on 03/01/17 to follow up with her primary care doctor tomorrow and her veneer jointer returner the day after. Also, the patient had been having anxiety while in the hospital, which was being exacerbated by her albuterol, which is why she was switched to Xopenex, partially through her admission. The patient had consistent loose bowel movements throughout the entire hospitalization, sometimes with incontinence which she states is related to the chemo and preexisted the hospitalization. The patient was prescribed Imodium with no appreciable effect. PHYSICAL EXAM ON DAY OF DISCHARGE: General: The patient is a 71-year-old female, who appears stated age and is sitting comfortably in the bed, in no acute distress without increased work of breathing. Vital Signs: Temperature 98.1, pulse rate 93, respiratory rate 20, oxygen saturation 97% on 2 L of oxygen , blood pressure 129/72. HEENT: Head normocephalic, atraumatic. Sclerae anicteric. No conjunctival injection. Nasal mucosa moist without scabs or dried blood. Pharynx nonerythematous. Mucous membranes moist. Neck: Supple, nontender. No lymphadenopathy. No carotid bruits auscultated. Cardiac: Regular rate and rhythm. No clicks, murmurs, gallops, or rubs. Pulses 2+ in the bilateral radial, dorsalis pedis, and posterior tibialis areas. No edema. Respiratory: Symmetric chest expansion and effort. Slight expiratory wheezes heard in the lower lobes of bilateral lungs, improved over previous exam. Abdomen: Normal sounds. No distention. Nontender to palpation. No mass. No hepatosplenomegaly. Genitourinary: No CVA tenderness or suprapubic tenderness. Neuro: Cranial nerves II through XII grossly intact. Strength 5/5 in the bilateral upper and lower distal extremities. Alert and oriented x3. Psychiatric: Pleasant and cooperative. Skin: Clean, dry and intact. No rash. LABORATORY DATA: On day of discharge, none available. DISCHARGE PLAN: The patient will be discharged with antibiotics to finish a 14- day course of ceftriaxone/cefpodoxime. The patient already had 6 days of azithromycin in the hospital and 5 days as outpatient, we will not continue this at discharge. The patient will have a prednisone taper for 2 weeks after discharge. The patient will follow up with her primary care doctor tomorrow to optimize medical therapy for the outpatient zone. The patient will continue taking Dulera and tiotropium in the outpatient until no longer deemed appropriate by her primary care doctor. The patient will call her oncologist when she was discharged to establish the time when she will next have chemotherapy. ACTIVITY: As tolerated with oxygen. The patient will get a wheelchair, a walker, and a commode from her Durable Medical Equipment supplier. The patient should return to the emergency department if she has significantly increasing oxygen demands or shortness of breath or any chest pain or other alarming symptoms. DIET: Regular, unrestricted. The patient should take Xopenex nebulizers as needed until she can successfully transition back to just her albuterol inhaler. The patient should take Valium as needed for anxiety and follow up with her primary care doctor to continue this prescription. TIME SPENT: Approximately 60 minutes was spent on this discharge, 30 minutes of which was spent [id number] with the patient obtaining history and physical and discussing treatment options. YNES HERRING [id number]/[facility] #: [id number] MARIA ESTHER
== END 2017-03-01 17:50 | disposition home or self-care (01) | DRG 193 ==
LOC: ED 20:08 → MEDTELE 22:00
PROVIDERS: ADMIT Hospitalist; ATTEND Internal Medicine
DX: J10.08 Influenza due to other identified influenza virus with other specified pneumonia (principal); I21.4 Non-ST elevation (NSTEMI) myocardial infarction; C78.00 Secondary malignant neoplasm of unspecified lung; C78.7 Secondary malignant neoplasm of liver and intrahepatic bile duct; J44.1 Chronic obstructive pulmonary disease with (acute) exacerbation; C50.919 Malignant neoplasm of unspecified site of unspecified female breast; F41.9 Anxiety disorder, unspecified; F17.210 Nicotine dependence, cigarettes, uncomplicated; Z79.899 Other long term (current) drug therapy; Z81.1 Family history of alcohol abuse and dependence; Z99.81 Dependence on supplemental oxygen
CPT/HCPCS: 36415; 71010; 71020; 80048; 80053; 81003; 82550; 82553; 83605; 83690; 83735; 83880; 84484; 85025; 85610; 85730; 86140; 87040; 87070; 87077; 87150; 87205; 87502; 93005; 94640; 94760; A9270-GY; J0456; J0692; J0696; J1642; J1644; J2543; J3370; J3475; J7512; J7614